=== PATIENT | male | born 1965 | race Caucasian/White ===

== ENCOUNTER 2017-08-29 15:39 | Inpatient (IN) | payer OTHER ==
[~2017-08-29] VITALS: Ht 182.9 cm; Wt 95.7 kg
[~2017-08-29 15:39] MED LIST: FENOFIBRIC ACI135 MG PO; LIORESAL PO; MORPHINE SULFAT30 M2 PO; OMEGA-3-ACID ETH1 GM; OXYCODONE HYDRO10 M1 PO; PANTOPRAZOLE SO40 MG PO; PRAVASTATIN SOD10 MG PO; SUMATRIPTAN SUC50 MG PO; TAMSULOSIN HYD0.4 MG PO; TOPIRAMATE25 MG PO; ZOLPIDEM TARTRAT5 MG PO
[2017-08-29 16:03] LABS: ABSOLUTE BASOPHIL COUNT 0.1 /CUMM (0.0-0.2); ABSOLUTE EOSINOPHIL COUNT 0.3 /CUMM (0.0-0.7); ABSOLUTE GRANULOCYTE CT 13.8 /CUMM (1.4-6.5); ABSOLUTE LYMPH COUNT 3.2 /CUMM (1.2-3.4); ABSOLUTE MONOCYTE COUNT 0.9 /CUMM (0.10-0.60); BASOPHIL % 0.7 % (0.0-2.0); EOSINOPHIL % 1.5 % (0-5); HEMATOCRIT 44.8 % (42-52); MEAN CORPUSCULAR VOLUME 81.7 FL (80.0-94.0); MEAN PLATELET VOLUME 8.1 FL (7.4-10.4); PLATELET COUNT 285 /CUMM (130-400); RBC DISTRIBUTION WIDTH 14.1 % (11.5-14.5); RED BLOOD CELL CT 5.49 /CUMM (4.70-6.10); WHITE BLOOD CELL COUNT 18.4 /CUMM (4.8-10.8)
[2017-08-29 16:22] LABS: GRANULOCYTE % 75.1 % (42.2-75.2)
--- NOTE | 2017-08-29 17:11 | ED GI/GU/ABDOMINAL COMPLAINT ---
History of Present Illness General Chief Complaint: General Adult Stated Complaint: "MY HAS HEART PAIN" PER Source: patient, family Exam Limitations: no limitations Vital Signs & Intake/Output Vital Signs & Intake/Output Vital Signs Date Time Temp Pulse Resp B/P B/P Pulse O2 O2 Flow FiO2 Mean Ox Delivery Rate 08/29 1921 98.9 89 18 127/84 98 Room Air 08/29 1734 Room Air 08/29 1544 96.4 100 18 144/100 99 Room Air Allergies Coded Allergies: penicillin V (UNKNOWN 08/29/17) Reconcile Medications Baclofen (Lioresal) 5 MG TAB 10 MG PO TID MUSCLE RELAXER (Reported) FENOFIBRIC ACID (CHOLINE) (Fenofibric Acid) 135 MG CAPSULE.DR 135 MG PO DAILY CHOLESTEROL (Reported) OMEGA-3 ACID ETHYL ESTERS ([place]-3 Acid Ethyl Esters) 1 GRAM CAPSULE 1 GM DAILY TRIGLYCERIDES (Reported) OXYCODONE HCL (Oxycodone Hydrochloride) 10 MG TABLET 1 TAB PO 4 TIMES/DAY PAIN (Reported) Pantoprazole Sodium 40 MG TABLET.DR 40 MG PO PRN GERD (Reported) Pravastatin (Pravastatin Sodium) 10 MG TAB 40 MG PO DAILY CHOLESTEROL ( Reported) Sumatriptan Succinate 50 MG TAB 50 MG PO PRN MIGRAINES (Reported) TAMSULOSIN HCL (Tamsulosin Hydrochloride) 0.4 MG CAP.ER.24H 1 CAP PO DAILY PROSTATE (Reported) Topiramate 25 MG TABLET 25 MG PO PRN MIGRAINES (Reported) Zolpidem Tartrate 5 MG TAB 10 MG PO QHS SLEEP (Reported) Triage Note: PT STATES HE IS HAVING CHEST PAIN. PT REPORTS BEING ON OXYCODONE FOR THE PAST 10 YEARS AND PT STATES HE WAS CHANGED TO VICODEN. PT C/O CHEST PAIN AND STOMACH PAIN. "I FEEL LIKE CRAP". Triage Nurses Notes Reviewed? yes Onset: Gradual Duration: day(s): (10), constant, continues in ED, waxing and waning Quality/Severity: sharpness, severe Location: right lower quadrant, right upper quadrant Radiation: chest Activities at Onset: none HPI: Patient presents for evaluation of severe stomach irritation with nausea that began with a conversion of his pain medication from Percocet to Vicodin. This occurred about 10 days ago. 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 That was then converted over to Vicodin. Patient feels that it is the Vicodin that causing him the abdominal discomfort/irritation. He denies any associated diarrhea. Past History Travel History Traveled to [place] past 21 day No Medical History Any Pertinent Medical History? see below for history Tetanus Vaccine: 07/02/14 Surgical History Surgical History: non-contributory Psychosocial History What is your primary language Belarusian Tobacco Use: Current Daily Use Daily Tobacco Use Amount/Type: => 5 Cigarettes daily ETOH Use: denies use Illicit Drug Use: denies illicit drug use Family History Hx Contributory? No Review of Systems Review of Systems Constitutional: Reports: no symptoms. EENTM: Reports: no symptoms. Respiratory: Reports: no symptoms. Cardiovascular: Reports: no symptoms. GI: Reports: no symptoms, see HPI. Genitourinary: Reports: no symptoms. Musculoskeletal: Reports: no symptoms. Skin: Reports: no symptoms. Neurological/Psychological: Reports: no symptoms. Hematologic/Endocrine: Reports: no symptoms. Immunologic/Allergic: Reports: no symptoms. All Other Systems: Reviewed and Negative Physical Exam Physical Exam Gastrointestinal: SEE BELOW Comments: Gen.: Well-nourished, well-developed, no acute respiratory distress. Moderate distress secondary to upper abdominal pain. Head: Normocephalic, atraumatic. Eyes: Normal inspection bilaterally Ears: Normal inspection bilaterally Nose: Normal inspection Throat/mouth : Moist mucosa Neck: Supple, full range of motion, no goiter Heart: Regular rate and rhythm, no murmurs rubs or gallops Lungs: Clear to auscultation bilaterally with normal air entry Chest: Nontender Back: Normal range of motion Abdomen: Soft, epigastric abdominal tenderness with brief voluntary guarding but no rebound, nondistended, normal bowel sounds Extremities: Normal range of motion grossly, equal radial pulses, no cyanosis clubbing or edema Neurologic: Cranial nerves grossly intact, speech is clear Skin: warm and dry Psychiatric: Calm, cooperative, no apparent delusions or hallucinations Core Measures ACS in differential dx? No Sepsis Present: No Sepsis Focused Exam Completed? No Progress Differential Diagnosis: GASTRITIS, PEPTIC ULCER DISEASE, PANCREATITIS, BILIARY COLIC, HEPATITIS, DIVERTICULITIS, MEDICATION REACTION Plan of Care: Orders Procedure Date/time Status LACTIC ACID 08/29 1845 Complete Add-on Test (ER Only) 08/29 1836 Active LIPASE 08/29 1555 Complete TROPONIN LEVEL 08/29 1545 Complete LACTIC ACID 08/29 1545 Complete COMPREHENSIVE METABOLIC PANEL 08/29 1545 Complete CBC WITHOUT DIFFERENTIAL 08/29 1545 Complete EKG 08/29 1540 Active Laboratory Tests 08/29/17 1908: Lactic Acid 3.3 H 08/29/17 1555: Anion Gap 20 H, Estimated GFR 54 L, BUN/Creatinine Ratio 24.3, Glucose 307 H, Lactic Acid 3.9 H, Calcium 10.1, Total Bilirubin 0.7, AST 59, ALT 58, Alkaline Phosphatase 108, Troponin I < 0.01, Total Protein 8.2, Albumin 5.3 H, Globulin 2.9, Albumin/Globulin Ratio 1.8, Lipase 1347 H, CBC w Diff NO MAN DIFF REQ, RBC 5.49, MCV 81.7, MCH 27.0, MCHC 33.0, RDW 14.1, MPV 8.1, Gran % 75.1, Lymphocytes % 17.7 L, Monocytes % 5.0, Eosinophils % 1.5, Basophils % 0.7, Absolute Granulocytes 13.8 H, Absolute Lymphocytes 3.2, Absolute Monocytes 0.9 H, Absolute Eosinophils 0.3, Absolute Basophils 0.1 Diagnostic Imaging: Discussed w/RAD: CT Scan. Radiology Impression: PATIENT: DIEUDONNE CALVIN PRESENT AGE: 52 PATIENT ACCOUNT NO: [id number] : 67 LOCATION: [facility] ORDERING PHYSICIAN: Logan Gavin MD SERVICE DATE: 08/29/17 EXAM TYPE: CAT - CT ABD & PELVIS W/O IV CONTRAS EXAMINATION: CT ABDOMEN AND PELVIS WITHOUT CONTRAST CLINICAL INFORMATION: Upper abdominal pain. COMPARISON: 02/22/2013. TECHNIQUE: Contiguous axial thin section helical images of the abdomen and pelvis were performed following the administration of oral, but not IV, contrast. The data set was reformatted in the coronal and sagittal planes and reviewed on an independent workstation. DLP: 391 mGy-cm. FINDINGS: There is mild bibasilar atelectasis. The visualized lung bases are otherwise clear. The visualized portions of the heart are unremarkable. The liver is of slight increased size and diffuse decreased attenuation without focal lesions nor intrahepatic biliary ductal dilation. A normal gallbladder is identified. There is no wall thickening or discernible pericholecystic fluid. The spleen and adrenal glands are unremarkable. There is fullness to the pancreatic head with surrounding fat stranding. The pancreatic body and tail are unremarkable. Both kidneys are of normal size and attenuation without hydronephrosis or nephrolithiasis. There is no abdominal free fluid. There is neither mesenteric nor retroperitoneal lymphadenopathy. There is sigmoid diverticulosis without evidence of diverticulitis; otherwise, unremarkable opacified loops of small and large bowel are identified. There is no pelvic free fluid. The urinary bladder is unremarkable. There is neither pelvic nor inguinal lymphadenopathy. Bone windows: Neither sclerotic nor lytic bone lesions are identified. IMPRESSION: Enlargement to the pancreatic head with adjacent fat stranding suggestive of pancreatitis. No drainable fluid collections identified. Evaluation is slightly limited secondary to the lack of IV contrast. Hepatic steatosis. Sigmoid diverticulosis without evidence of diverticulitis. DICTATED BY: Gary Carlin MD DATE/TIME DICTATED:08/29/171744 CLIMATE CHANGE RISK ASSESSOR:LELA DATE/TIME TRANSCRIBED:08/29/171744 CONFIDENTIAL, DO NOT COPY WITHOUT APPROPRIATE AUTHORIZATION. <Electronically signed in Other Vendor System> SIGNED BY: Gary Carlin MD 08/29/17 6570 Initial ED EKG: NSR, rate (97) Prior EKG: unchanged Comments: 08/29/2017 6:41:16 PM I have updated call and his family on test results. Fluids and pain medication ordered. 08/29/2017 8:13:10 PM patient's case discussed with Dr. Sanders. Departure Departure Disposition: STILL A PATIENT Condition: Stable Clinical Impression Primary Impression: Pancreatitis Qualifiers: Chronicity: acute Pancreatitis type: unspecified pancreatitis type Acute pancreatitis complication: unspecified Qualified Code: K85.90 - Acute pancreatitis without necrosis or infection, unspecified Referrals: Sanjuana Argueta APRN (PCP/Family) Departure Forms: Customer Survey General Discharge Information Admission Note Spoke With: Fidencio Sadners MD Documentation of Exam: Documentation of any treatments & extenuating circumstances including Concerns Regarding Discharge (functional status, medication knowledge or non-compliance, living conditions, etc.) that warrant an admission rather than observation: Patient has acute pancreatitis of unclear etiology. He is suffering severe epigastric abdominal pain. He is requiring IV narcotic pain relievers and is therefore poor candidate for outpatient management. I do not feel his pain would be adequately controlled and it would therefore be very difficult for him to comply with outpatient treatment plan. He could potentially return in worse clinical condition including worsening pain, third spacing of fluids and hypotension. Given the unclear nature of the underlying cause is also impossible to predict the patient's clinical course over the next few days. Given this I feel he requires hospitalization for pain management. He should be kept on a clear liquid diet and his pancreatic enzymes monitored for improvement. The underlying cause of his pancreatitis should be investigated ( secondary to diabetes, medications biliary disease or cancer). GI consultation should also be considered. I Feel he WILL require a multiple day hospitalization. Critical Care Note Critical Care Note Critical Care Time: 30-74 min
--- NOTE | 2017-08-29 17:53 | CT SCAN REPORT ---
EXAMINATION: CT ABDOMEN AND PELVIS WITHOUT CONTRAST CLINICAL INFORMATION: Upper abdominal pain. COMPARISON: 02/22/2013. TECHNIQUE: Contiguous axial thin section helical images of the abdomen and pelvis were performed following the administration of oral, but not IV, contrast. The data set was reformatted in the coronal and sagittal planes and reviewed on an independent workstation. DLP: 391 mGy-cm. FINDINGS: There is mild bibasilar atelectasis. The visualized lung bases are otherwise clear. The visualized portions of the heart are unremarkable. The liver is of slight increased size and diffuse decreased attenuation without focal lesions nor intrahepatic biliary ductal dilation. A normal gallbladder is identified. There is no wall thickening or discernible pericholecystic fluid. The spleen and adrenal glands are unremarkable. There is fullness to the pancreatic head with surrounding fat stranding. The pancreatic body and tail are unremarkable. Both kidneys are of normal size and attenuation without hydronephrosis or nephrolithiasis. There is no abdominal free fluid. There is neither mesenteric nor retroperitoneal lymphadenopathy. There is sigmoid diverticulosis without evidence of diverticulitis; otherwise, unremarkable opacified loops of small and large bowel are identified. There is no pelvic free fluid. The urinary bladder is unremarkable. There is neither pelvic nor inguinal lymphadenopathy. Bone windows: Neither sclerotic nor lytic bone lesions are identified. IMPRESSION: Enlargement to the pancreatic head with adjacent fat stranding suggestive of pancreatitis. No drainable fluid collections identified. Evaluation is slightly limited secondary to the lack of IV contrast. Hepatic steatosis. Sigmoid diverticulosis without evidence of diverticulitis.
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
[2017-08-29 22:45] VITALS: BP 126/80
[2017-08-29 22:46] VITALS: BP 126/80
[2017-08-29 23:16] LABS: ABSOLUTE BASOPHIL COUNT 0 /CUMM (0.0-0.2); ABSOLUTE EOSINOPHIL COUNT 0.2 /CUMM (0.0-0.7); ABSOLUTE GRANULOCYTE CT 9.1 /CUMM (1.4-6.5); ABSOLUTE LYMPH COUNT 2.4 /CUMM (1.2-3.4); ABSOLUTE MONOCYTE COUNT 0.7 /CUMM (0.10-0.60); BASOPHIL % 0.2 % (0.0-2.0); EOSINOPHIL % 1.9 % (0-5); GRANULOCYTE % 73.4 % (42.2-75.2); HEMATOCRIT 40.1 % (42-52); MEAN CORPUSCULAR HGB 27.4 PG (27.0-31.0); MEAN CORPUSCULAR VOLUME 80.4 FL (80.0-94.0); PLATELET COUNT 248 /CUMM (130-400); RBC DISTRIBUTION WIDTH 14.1 % (11.5-14.5); RED BLOOD CELL CT 4.99 /CUMM (4.70-6.10); WHITE BLOOD CELL COUNT 12.4 /CUMM (4.8-10.8)
--- NOTE | 2017-08-29 23:38 | RADIOLOGY REPORT ---
EXAMINATION: XR PORTABLE CHEST CLINICAL INFORMATION: Chest pain. COMPARISON: Chest x-ray 05/27/2015 TECHNIQUE: Portable frontal view of the chest was obtained. FINDINGS: No acute abnormality. The lungs are clear. There is no pulmonary vascular congestion. No pleural effusion or pneumothorax. The heart size is normal. The cardiac and mediastinal contours are normal. No acute osseous abnormality. Orthopedic hardware again seen at the lower cervical spine partially imaged. IMPRESSION: Unremarkable examination.
[2017-08-30] MEDS ORDERED: LYRICA100 M1 PO (01:20)
[2017-08-30] MEDS ORDERED: CRESTOR20 M2 PO (01:22)
[2017-08-30] MEDS ORDERED: METFORMIN HCL1000 M1 PO (01:22)
--- NOTE | 2017-08-30 02:11 | Event Note ---
Event Note Event Note: S: Rapid response was called once patient arrived to the floor for chest pain B: Patient was admitted for acute pancreatitis. He reported chronic chest pain that radiated to right side, doesn't relate to activity, denied any shortness of breath or palpitation, on admission EKG and troponins are negative for CAD A: Patient reported pain pressure-like lower chest radiated to the right arm, not associated with palpitation or shortness of breath. He is alert oriented 3 and reporting severe pain in the epigastric area and lower chest. Vitals blood pressure 126/80, pulse 86 regular, respiratory rate 20 saturating 97% room air, blood sugar 197 Exam cardiac S1, S2 no murmurs Chest clear Abdomen generalized tenderness not changed from admission R: Will obtain EKG, troponin, CBC, BMP, chest x-ray, lactic acid Patient was given Dilaudid IV for pain, full dose of aspirin Attending was informed We'll continue to follow
--- NOTE | 2017-08-30 03:11 | Admission Certification ---
Admission Certification Certification Statement - As attending physician, I certify that at the time of - admission, based on clinical presentation, severity of - symptoms, need for further diagnostic testing and - therapeutic interventions, and risk of adverse outcomes - without in-hospital treatment, in my clinical assessment, - this patient requires an acute hospital stay for a minimum - of two nights or longer. I have also considered psychsocial - factors such as support system, advanced age, financial - issues, cognitive issues, and failed out-patient treatments, - past re-admission history, safety of patient, and lack of - compliance as applicable. Specific rationale supporting this admission is: Acute pancreatitis
[2017-08-30 06:54] VITALS: BP 150/100
--- NOTE | 2017-08-30 07:10 | PN- Housestaff ---
Johan QUEZADA,[facility] 08/30/17 0710: Subjective Follow-up For: pancreatitis Subjective: No acute events overnight. Pt requested clear liquids but still in alot of pain. Review of Systems Constitutional: Reports: see HPI. Cardiovascular: Reports: no symptoms. Respiratory: Reports: no symptoms. Gastrointestinal: Reports: abdominal pain. Genitourinary: Reports: no symptoms. Musculoskeletal: Reports: no symptoms. Objective Last 24 Hrs of Vital Signs/I&O Vital Signs Date Time Temp Pulse Resp B/P B/P Pulse O2 O2 Flow FiO2 Mean Ox Delivery Rate 08/30 2242 97.8 77 18 158/90 98 Room Air 08/30 1443 97.8 82 20 142/94 96 08/30 0654 98.8 81 20 150/100 96 Room Air Intake & Output 08/30 1600 08/30 0800 08/30 0000 Intake Total 1300 1220 Output Total Balance 1300 1220 Intake, IV 1250 1100 Intake, Oral 50 120 Number 0 0 Bowel Movements Patient 211 lb Weight Physical Exam General Appearance: Alert, Oriented X3, Cooperative, Moderate Distress Cardiovascular: Regular Rate, Normal S1, Normal S2 Lungs: Clear to Auscultation, Normal Air Movement Abdomen: diffuse abd pain especially epigastric Vascular: 2+ radial pulses Current Medications: Current Medications Sig/Jazmin Start time Last Medication Dose Route Stop Time Status Admin Acetaminophen 650 MG Q6P PRN 08/29 2345 AC PO Al Hydroxide/Mg 30 ML .STK-MED ONE 08/30 1029 DC Hydroxide PO 08/30 1030 Al Hydroxide/Mg 30 ML ONCE ONE 08/30 0945 DC 08/30 Hydroxide PO 08/30 0946 1045 Atorvastatin Calcium 80 MG 1700 08/30 1700 AC 08/30 PO 1642 Fenofibrate 145 MG DAILY 08/30 1000 AC 08/30 PO 0845 Heparin Sodium 5,000 UNIT Q8 08/30 0600 AC 08/30 (Porcine) SC 2204 Hydromorphone HCl 1 MG Q4-PRN PRN 08/30 0245 AC 08/30 IV 1407 Hydromorphone HCl 1 MG Q6P PRN 08/29 2345 DC 08/30 IV 0200 Insulin Aspart 0 Q4 08/30 1000 AC 08/30 SC 2205 Insulin Aspart 0 TIDAC 08/30 0800 DC SC Insulin Detemir 10 UNITS DAILY 08/30 1000 AC 08/30 SC 1024 Insulin Human Regular 0 Q6 08/30 0829 DC 08/30 SC 0844 Lactated Ringer's 1,000 ML .Q4H 08/30 1645 AC 08/30 IV 1832 Lactated Ringer's 1,000 ML .Q4H 08/30 0215 DC 08/30 IV 08/30 1630 1230 Lactated Ringer's 1,000 ML ONCE ONE 08/29 2345 DC IV 08/30 0624 Magnesium Sulfate 1 GM ONCE ONE 08/29 2345 DC 08/30 Dextrose/Water 100 ML IV 08/30 0344 0400 Melatonin 5 MG AT BEDTIME 08/30 2300 AC PO Nicotine 14 MG Q24 08/30 1000 AC 08/30 TOP 0847 Ondansetron HCl 4 MG Q6P PRN 08/29 2345 AC 08/30 IV 1647 Oxycodone HCl 5 MG Q6P PRN 08/29 2345 AC 08/30 PO 2204 Pantoprazole Sodium 40 MG DAILY 08/30 1000 AC 08/30 IV 0844 Patient Medication 1 ED ONE ONE 08/30 1330 DC 08/30 Teaching ED 08/30 1331 1407 Pregabalin 200 MG BID 08/30 1000 AC 08/30 PO 2203 Senna/Docusate Sodium 1 TAB AT BEDTIME 08/30 2200 AC 08/30 PO 2203 Sodium Chloride 1,000 ML BOLUS ONE 08/29 2345 DC 08/30 IV 08/30 0144 0145 Topiramate 25 MG DAILY 08/30 1000 AC 08/30 PO 0845 Topiramate 25 MG .[PRN] 08/30 0115 DC PO Zolpidem Tartrate 10 MG AT BEDTIME 08/30 2200 AC PO Last 24 Hrs of Lab/Zafar Results Last 24 Hrs of Labs/Mics: Laboratory Tests 08/30/17 1935: Lactic Acid 2.2 H 08/30/17 1641: Lactic Acid 2.3 H 08/30/17 1639: Lactic Acid Cancelled 08/30/17 1120: Lactic Acid 2.8 H 08/30/17 0729: Anion Gap 16, Estimated GFR > 60, BUN/Creatinine Ratio 20.0, CBC w Diff NO MAN DIFF REQ, RBC 4.71, MCV 81.0, MCH 27.8, MCHC 34.3, RDW 14.3, MPV 8.1, Gran % 72.6, Lymphocytes % 17.9 L, Monocytes % 6.1, Eosinophils % 3.1, Basophils % 0.3 , Absolute Granulocytes 7.7 H, Absolute Lymphocytes 1.9, Absolute Monocytes 0.6 , Absolute Eosinophils 0.3, Absolute Basophils 0 08/30/17 0720: Troponin I < 0.01 08/30/17 0720: Magnesium 1.5 L 08/30/17 0720: Lactic Acid 2.2 H, Total Bilirubin 0.8, Direct Bilirubin 0.3, AST 37, ALT 51, Alkaline Phosphatase 87, Total Protein 6.8, Albumin 4.4, Triglycerides 756 H, Cholesterol 172, LDL Cholesterol Direct 46.53, LDL Cholesterol, Calc ND, HDL Cholesterol 37 L, Cholesterol/HDL Ratio 5 H 08/30/17 0135: Lactic Acid 2.7 H Assessment/Plan Assessment: A: 52 yaers old male with PMH of DM,HTN,HLD,MIGRAINE,spinal injury S/P surgery on chronic pain meds C/O of Abd pain and nausea which all started 2 weeks ago when his doctor changed his pain meds from Oxycodone which he was tolerating fine to Vicodine, pt felt uncomfortable taking it and started having nausea and diarrhea and worsening abd pain. Patient has history of cholecystectomy in 2008 after which he continue with toexperience intermittent abdominal pain which might be due to undetected stones in the biliary tract patient denies any changes to his medications recently except for he was started onTrajenta yesterday he only got 1 dose. VS on admission: Temp 98.9, pulse 89, RR: 18, BP 127/84, PO2 98 on RA LAbs on admission: CBC 18.4, Hgb 14.8, Plat 285, granulocyte 13.8, NA 134, K 5, Chlorise 96, carbon dioxide 18, Anion gap 20, BU&N 34, Cr 1.4, Glucose 307, Lactic acid 3.9 trended to 3.3, Alt 58, AST 59, Lipase 1347, TG>900 #Acute pancreatitis: BISAP score 1 Most likely due to hypertrigylecerdimea (982) RUQ U/S: hepatic steatosis. No other gross abnormality CT abdomen: Enlargement to the pancreatic head with adjacent fat stranding suggestive of pancreatitis. No drainable fluid collections identified. Evaluation is slightly limited secondary to the lack of IV contrast. Hepatic steatosis. Sigmoid diverticulosis without evidence of diverticulitis. CRP 1.6 -continue IV hydration with lactated Ringer -Pain control -Will check CRP for 3 days as a prognostic indicator -f/u GI consult for enlargement of pancreatic head -f/u repeat cbc, bep, lft, lipase, lipid panel, crp for tomorrow -advanced diet as tolerated #Lactic acidosis Most likely due to dehydration LA 3.9 -> 2.2 -IV hydration with LR @ 250 -Trend lactic acid #Atypical chest pain: Patient reports having exertional chest pain radiating to the right arm serial EKGs and troponins negative Chest x-ray was normal -Most likely referred from abdominal pain -Control with pain meds #Diabetes mellitus type 2 -follow endocrinology recs for insulin #leukocytosis 18.4 -> 10.6 -possibly reactive as pt afebrile #hypomag Mg 1.3 -> 1.5 -replete as needed Nothing by mouth (pt still in pain) Full code DVT prophylaxis with subcutaneous heparin Problem List: 1. Pancreatitis 2. Lactic acidosis 3. Leukocytosis 4. Hypomagnesemia Pain Ratin Pain Location: abd Pain Goal: Pain 4 or less Pain Plan: pain pathway Tomorrow's Labs & Rationales: cbc bep lft lipase lipid panel mg crp Elvin Kim 08/30/17 1212: Attending MD Review Statement Attending Statement Attending MD Statement: examined this patient, discuss w/resident/PA/ETCHER MACHINE, agreed w/resident/PA/ETCHER MACHINE, discussed with family, reviewed EMR data (avail), discussed with nursing, discussed with case mgmt, reviewed images, amended to note Attending Assessment/Plan: 52 o/m admitted for acute pancreatitis. CT abd/pelvis suggestive of enlarged pancreatic head. NPO, IVF aggresive hydration, GI consult, pain control. Continue with oral meds. gi/dvt prophyalxis full code.
[2017-08-30 08:20] LABS: ABSOLUTE BASOPHIL COUNT 0 /CUMM (0.0-0.2); ABSOLUTE EOSINOPHIL COUNT 0.3 /CUMM (0.0-0.7); ABSOLUTE GRANULOCYTE CT 7.7 /CUMM (1.4-6.5); ABSOLUTE LYMPH COUNT 1.9 /CUMM (1.2-3.4); ABSOLUTE MONOCYTE COUNT 0.6 /CUMM (0.10-0.60); BASOPHIL % 0.3 % (0.0-2.0); EOSINOPHIL % 3.1 % (0-5); GRANULOCYTE % 72.6 % (42.2-75.2); HEMATOCRIT 38.2 % (42-52); MEAN CORPUSCULAR HGB 27.8 PG (27.0-31.0); MEAN CORPUSCULAR HGB CONC 34.3 G/DL (33.0-37.0); MEAN PLATELET VOLUME 8.1 FL (7.4-10.4); PLATELET COUNT 209 /CUMM (130-400); RBC DISTRIBUTION WIDTH 14.3 % (11.5-14.5); RED BLOOD CELL CT 4.71 /CUMM (4.70-6.10); WHITE BLOOD CELL COUNT 10.6 /CUMM (4.8-10.8)
--- NOTE | 2017-08-30 10:40 | ULTRASOUND REPORT ---
EXAMINATION: US ABDOMEN LIMITED CLINICAL INFORMATION: Generalized right upper quadrant pain. History of cholecystectomy. Pancreatitis.. COMPARISON: CT abdomen pelvis 08/29/2017 and abdominal ultrasound 07/07/2017 TECHNIQUE: Real-time imaging of the right upper quadrant abdominal viscera. Examination limited secondary to body habitus and overlying bowel gas. FINDINGS: PANCREAS: The pancreas was poorly visualized secondary to overlying bowel gas. LIVER: The liver is enlarged and demonstrates diffusely increased echogenicity suggesting hepatic steatosis. No intrahepatic biliary duct dilatation. GALLBLADDER: Surgically absent COMMON BILE DUCT: Normal in caliber measuring 0.4 cm in diameter. RIGHT KIDNEY: Poorly visualized. No gross renal calculi or hydronephrosis. The kidney measures 11.8 cm in maximum dimension. FREE FLUID: None. IMPRESSION: Limited examination secondary to body habitus and overlying bowel gas. There is ultrasound evidence of hepatic steatosis. No other gross abnormality identified on today's ultrasound imaging of the right upper quadrant.
--- NOTE | 2017-08-30 14:01 | Cons- Endocrinology ---
General Information and HPI Consulting Request Date of Consult: 08/30/17 Requested By: medical team Reason for Consult: management of uncontrolled diabetes type 2 and hypertriglycedemia Source of Information: patient, old records Exam Limitations: no limitations History of Present Illness: 52 years old male with PMH significant for DM type 2 on meformin,HTN,HLD, MIGRAINE,spinal injury S/P surgery on chronic pain meds presented with abdominal pain and nausea started 2 weeks ago after his pain medication was adjusted. In ER, blood work showed lipase 1347, amylase 43, TRIG 982, LDL 165, elevated lactic acid of 3.9 along with HbA1c of 10.2%. He denied any ETOH uses. He has been kept NPO and has bee on LR at 150 ml/hour. His FSGs were 197 and 242. In addition, he was put on Atorvastatin 80 mg daily and Fenofibrate 145 mg daily. 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 (Reported) Metformin HCl 1,000 MG TABLET 1 TAB PO BID DM (Reported) OMEGA-3 ACID ETHYL ESTERS ([place]-3 Acid Ethyl Esters) 1 GRAM CAPSULE 1 GM DAILY TRIGLYCERIDES (Reported) Pantoprazole Sodium 40 MG TABLET.DR 40 MG PO PRN GERD (Reported) Pregabalin (Lyrica) 100 MG CAPSULE 200 MG PO BID NEUROPATHY (Reported) Rosuvastatin Calcium (Crestor) 20 MG TABLET 1 TAB PO DAILY HIGH CHOLESTROL ( Reported) Sumatriptan Succinate 50 MG TAB 50 MG PO PRN MIGRAINES (Reported) Topiramate 25 MG TABLET 25 MG PO PRN MIGRAINES (Reported) Zolpidem Tartrate 5 MG TAB 10 MG PO QHS SLEEP (Reported) Review of Systems Review of Systems Constitutional: Reports: see HPI. Cardiovascular: Denies: chest pain. Respiratory: Denies: cough, short of breath. GI: Reports: abdominal pain, nausea. Musculoskeletal: Reports: back pain (chronic). Hematologic/Endocrine: Denies: polyuria, polydipsia. 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 Home Services at Home: None Smoking Status: Current Everyday Smoker ETOH Use: denies use Illicit Drug Use: denies illicit drug use Exam & Diagnostic Data Last 24 Hrs of Vital Signs/I&O Vital Signs Date Time Temp Pulse Resp B/P B/P Pulse O2 O2 Flow FiO2 Mean Ox Delivery Rate 08/30 0654 98.8 81 20 150/100 96 Room Air 08/29 2246 98.1 86 20 126/80 97 Room Air 08/29 2245 98.1 86 20 126/80 97 Room Air 08/29 2158 99.1 98 18 136/78 98 Room Air 08/29 1921 98.9 89 18 127/84 98 Room Air 08/29 1734 Room Air 08/29 1544 96.4 100 18 144/100 99 Room Air Intake & Output 08/30 1600 08/30 0800 08/30 0000 Intake Total 1220 Output Total Balance 1220 Intake, IV 1100 Intake, Oral 120 Number 0 Bowel Movements Patient 211 lb Weight Physical Exam General Appearance: no apparent distress Neck: normal inspection Respiratory: lungs clear Cardiovascular: regular rate/rhythm Gastrointestinal: distention, tenderness Extremities: no edema Labs/Zafar Results: Laboratory Tests 08/30 08/30 08/30 08/30 1120 0729 0720 0720 Chemistry Sodium (137 - 145 mmol/L) 135 L Potassium (3.5 - 5.1 mmol/L) 4.8 Chloride (98 - 107 mmol/L) 100 Carbon Dioxide (22 - 30 mmol/L) 19 L Anion Gap (5 - 16) 16 BUN (9 - 20 mg/dL) 18 Creatinine (0.7 - 1.2 mg/dL) 0.9 Estimated GFR (>60 ml/min) > 60 BUN/Creatinine Ratio (7 - 25 %) 20.0 Lactic Acid (0.7 - 2.1 mmol/L) 2.8 H Magnesium (1.6 - 2.3 mg/dL) 1.5 L Troponin I (<0.11 ng/ml) < 0.01 Hematology CBC w Diff NO MAN DIFF REQ WBC (4.8 - 10.8 /CUMM) 10.6 RBC (4.70 - 6.10 /CUMM) 4.71 Hgb (14.0 - 18.0 G/DL) 13.1 L Hct (42 - 52 %) 38.2 L MCV (80.0 - 94.0 FL) 81.0 MCH (27.0 - 31.0 PG) 27.8 MCHC (33.0 - 37.0 G/DL) 34.3 RDW (11.5 - 14.5 %) 14.3 Plt Count (130 - 400 /CUMM) 209 MPV (7.4 - 10.4 FL) 8.1 Gran % (42.2 - 75.2 %) 72.6 Lymphocytes % (20.5 - 51.1 %) 17.9 L Monocytes % (1.7 - 9.3 %) 6.1 Eosinophils % (0 - 5 %) 3.1 Basophils % (0.0 - 2.0 %) 0.3 Absolute Granulocytes (1.4 - 6.5 /CUMM) 7.7 H Absolute Lymphocytes (1.2 - 3.4 /CUMM) 1.9 Absolute Monocytes (0.10 - 0.60 /CUMM) 0.6 Absolute Eosinophils (0.0 - 0.7 /CUMM) 0.3 Absolute Basophils (0.0 - 0.2 /CUMM) 0 08/30 08/30 08/29 8213 8680 2378 Chemistry Hemoglobin A1c (4.2 - 5.8 %) 10.2 H Lactic Acid (0.7 - 2.1 mmol/L) 2.2 H 2.7 H 3.3 H Magnesium (1.6 - 2.3 mg/dL) 1.3 L Total Bilirubin (0.2 - 1.3 mg/dL) 0.8 Direct Bilirubin (< 0.4 mg/dL) 0.3 AST (17 - 59 U/L) 37 ALT (21 - 72 U/L) 51 Alkaline Phosphatase (< 127 U/L) 87 Troponin I (<0.11 ng/ml) < 0.01 Total Protein (6.3 - 8.2 g/dL) 6.8 Albumin (3.5 - 5.0 g/dL) 4.4 Triglycerides (<150 mg/dL) 756 H Cholesterol (< 200 MG/DL) 172 LDL Cholesterol Direct (<100 mg/dL) 46.53 LDL Cholesterol, Calc (65 - 129 mg/dL) ND HDL Cholesterol (40 - 60 mg/dL) 37 L Cholesterol/HDL Ratio (0.00 - 4.88 %) 5 H 08/29 08/29 0285 1908 Chemistry Sodium (137 - 145 mmol/L) 135 L Potassium (3.5 - 5.1 mmol/L) 5.1 Chloride (98 - 107 mmol/L) 98 Carbon Dioxide (22 - 30 mmol/L) 21 L Anion Gap (5 - 16) 16 BUN (9 - 20 mg/dL) 25 H Creatinine (0.7 - 1.2 mg/dL) 1.1 Estimated GFR (>60 ml/min) > 60 BUN/Creatinine Ratio (7 - 25 %) 22.7 Lactic Acid (0.7 - 2.1 mmol/L) 3.3 H Hematology CBC w Diff NO MAN DIFF REQ WBC (4.8 - 10.8 /CUMM) 12.4 H RBC (4.70 - 6.10 /CUMM) 4.99 Hgb (14.0 - 18.0 G/DL) 13.7 L Hct (42 - 52 %) 40.1 L MCV (80.0 - 94.0 FL) 80.4 MCH (27.0 - 31.0 PG) 27.4 MCHC (33.0 - 37.0 G/DL) 34.0 RDW (11.5 - 14.5 %) 14.1 Plt Count (130 - 400 /CUMM) 248 MPV (7.4 - 10.4 FL) 8.0 Gran % (42.2 - 75.2 %) 73.4 Lymphocytes % (20.5 - 51.1 %) 19.1 L Monocytes % (1.7 - 9.3 %) 5.4 Eosinophils % (0 - 5 %) 1.9 Basophils % (0.0 - 2.0 %) 0.2 Absolute Granulocytes (1.4 - 6.5 /CUMM) 9.1 H Absolute Lymphocytes (1.2 - 3.4 /CUMM) 2.4 Absolute Monocytes (0.10 - 0.60 /CUMM) 0.7 H Absolute Eosinophils (0.0 - 0.7 /CUMM) 0.2 Absolute Basophils (0.0 - 0.2 /CUMM) 0 08/29 1555 Chemistry Sodium (137 - 145 mmol/L) 134 L Potassium (3.5 - 5.1 mmol/L) 5.0 Chloride (98 - 107 mmol/L) 96 L Carbon Dioxide (22 - 30 mmol/L) 18 L Anion Gap (5 - 16) 20 H BUN (9 - 20 mg/dL) 34 H Creatinine (0.7 - 1.2 mg/dL) 1.4 H Estimated GFR (>60 ml/min) 54 L BUN/Creatinine Ratio (7 - 25 %) 24.3 Glucose (65 - 99 mg/dL) 307 H Lactic Acid (0.7 - 2.1 mmol/L) 3.9 H Calcium (8.4 - 10.2 mg/dL) 10.1 Total Bilirubin (0.2 - 1.3 mg/dL) 0.7 AST (17 - 59 U/L) 59 ALT (21 - 72 U/L) 58 Alkaline Phosphatase (< 127 U/L) 108 Troponin I (<0.11 ng/ml) < 0.01 C-Reactive Prot, Quant (<1.0 mg/dL) 1.6 H Total Protein (6.3 - 8.2 g/dL) 8.2 Albumin (3.5 - 5.0 g/dL) 5.3 H Globulin (1.9 - 4.2 gm/dL) 2.9 Albumin/Globulin Ratio (1.1 - 2.2 %) 1.8 Triglycerides (<150 mg/dL) 982 H Cholesterol (< 200 MG/DL) 209 H LDL Cholesterol Direct (<100 mg/dL) 52.49 LDL Cholesterol, Calc (65 - 129 mg/dL) ND HDL Cholesterol (40 - 60 mg/dL) 46 Cholesterol/HDL Ratio (0.00 - 4.88 %) 5 H Lipase (23 - 300 U/L) 1347 H Hematology CBC w Diff NO MAN DIFF REQ WBC (4.8 - 10.8 /CUMM) 18.4 H RBC (4.70 - 6.10 /CUMM) 5.49 Hgb (14.0 - 18.0 G/DL) 14.8 Hct (42 - 52 %) 44.8 MCV (80.0 - 94.0 FL) 81.7 MCH (27.0 - 31.0 PG) 27.0 MCHC (33.0 - 37.0 G/DL) 33.0 RDW (11.5 - 14.5 %) 14.1 Plt Count (130 - 400 /CUMM) 285 MPV (7.4 - 10.4 FL) 8.1 Gran % (42.2 - 75.2 %) 75.1 Lymphocytes % (20.5 - 51.1 %) 17.7 L Monocytes % (1.7 - 9.3 %) 5.0 Eosinophils % (0 - 5 %) 1.5 Basophils % (0.0 - 2.0 %) 0.7 Absolute Granulocytes (1.4 - 6.5 /CUMM) 13.8 H Absolute Lymphocytes (1.2 - 3.4 /CUMM) 3.2 Absolute Monocytes (0.10 - 0.60 /CUMM) 0.9 H Absolute Eosinophils (0.0 - 0.7 /CUMM) 0.3 Absolute Basophils (0.0 - 0.2 /CUMM) 0.1 Toxicology Serum Alcohol (<10 MG/DL) < 10.0 Assessment/Plan Assessment/Plan 52 years old male with PMH significant for DM type 2 on meformin,HTN,HLD, MIGRAINE,spinal injury S/P surgery on chronic pain meds presented with abdominal pain and nausea started 2 weeks ago after his pain medication was adjusted. In ER, blood work showed lipase 1347, amylase 43, TRIG 982, LDL 165, elevated lactic acid of 3.9 along with HbA1c of 10.2%. He denied any ETOH uses. He has been kept NPO and has bee on LR at 150 ml/hour. His FSGs were 197 and 242. In addition, he was put on Atorvastatin 80 mg daily and Fenofibrate 145 mg daily. plan: 1. add Levemir 10 units daily; 2. agree with holding off on metformin; 3. adjust Novolog coverage verey 4 hours--detail see the inpatient DM order; 4. monitor FSGs; 5. repeat TRIG level tomorrow. will follow. Inpatient Diabetes Orders Before Each Meal: Bolus Insulin: Novolog < 80 mg/dl: no coverage 80-100 mg/dl: no coverage 101-120 mg/dl: no coverage 121-150 mg/dl: no coverage 151-200 mg/dl: no coverage 201-250 mg/dl: 3 units 251-300 mg/dl: 4 units 301-350 mg/dl: 6 units 351-400 mg/dl: 8 units > 400 mg/dl: 10 units Consult Acknowledgment - Thank you for your consult request.
[2017-08-30 14:43] VITALS: BP 142/94
--- NOTE | 2017-08-30 20:47 | Cons- Gastroenterology ---
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 elevated WBC 18.4 & glucose 301, although no LDH was sent on admission. He had 1 grave sign on admission by BiSAP criteria, namely elevated BUN 34. Admission CXR did not show any pleural effusions. Fortunately, there is no laboratory evidence of hemoconcentration, namely rise in BUN or Hgb, which would have been a poor prognostic sign. The mildly elevated CRP 1.6 on admission was noted, but this was probably obtained a little early. * His pancreatitis (clinically, radiographically- although limited utility of non- contrast IV CT, & lab-gilman with elevated lipase), most probably is due to his hyperTG, with admission *TG 982. This is superimposed on his cigarette smoking, which is yet another risk factor for pancreatitis. He denied EtOH, & levels were negative. No Utox was sent on admission- he remotely abused cocaine, which can cause ischemia to the GI organs. He is post-CCKY. Remote MRCP did not show any choledocholithisais, & his LFTs were normal, despite his fatty liver. He is on chronic rx narcotics for his neck/back pain, which can cause increased tone at the Sphincter of Oddi, but again, his LFTs were normal & there were no dilated ducts. *The +FHx pancreatic Ca (F- 65), is noted. The patient has been seen by endocrine to manage his hyperTG & DM. Within the limits of a non-IV contrast CT, there was nothing to suggest pancreatic necrosis, which would be unusual to see early on in the course, anyway. *SUGGEST- NPO. IV Lactated Ringer's at 250 cc/hr for now. If stable in a.m., can try sips of clears po. Strict I/O's. Supplemental O2 as needed. Analgesics as needed. Anti-emetics as needed. May continue IV PPI (past hx GERD), but watch low Mg on this. Replete electrolytes. Serial CBC, BUN/Cr, GFR (continue to watch for hemoconcentration) & TG. Management of DM with insulin, & of HLD with Tricor & Atorvastatin, as per endocrine. DVT prophyalxis. Mobilize patient. D/C cigarette smoking urged. Risk factor modification for fatty liver, including strict control of glucose, HTN, lipids, body weight, etc. Consideration for Vitamin E 800 IU po daily. *As the hyperTG is the probable culprit (superimposed on cigarette smoking), would defer IgG4 level (doubt autoimmune pancreatitis), and/or genetic testing (i.e- SPINK mutation, CFTR, PRSS-1, etc). *With +FHx pancreatic Ca, consideration for outpt EUS in 1-2 months, after the pancreatitis subsides (r/o IPMN, r/o PD stricture, etc.). *If the patient's diet is unable to be gradually advanced in conjunction with endocrine management of lipids & DM, please call the GI office. Otherwise, the partient was told to follow-up with Dr. Bao Schmid upon D/C. Problem List: 1. Pancreatitis 2. Abdominal pain 3. Hypertriglyceridemia 4. Nausea 5. Fatty liver 6. Family history of pancreatic cancer Copies To: Tommy QUEZADA,Fidencio; Julio QUEZADA,Elvin; Kendall ANTHONY,Sanjuana Kingsley; Amina QUEZADA,Chauncey N.; Sharmaine QUEZADA,Noah Jara; Yash QUEZADA,Raymond; Apolonia QUEZADA,Song Wick. Consult Acknowledgment - Thank you for your consult request.
[2017-08-30 22:42] VITALS: BP 158/90
[2017-08-31 06:47] VITALS: BP 150/94
[2017-08-31 08:19] LABS: ABSOLUTE BASOPHIL COUNT 0 /CUMM (0.0-0.2); ABSOLUTE EOSINOPHIL COUNT 0.2 /CUMM (0.0-0.7); ABSOLUTE LYMPH COUNT 1.9 /CUMM (1.2-3.4); ABSOLUTE MONOCYTE COUNT 0.6 /CUMM (0.10-0.60); BASOPHIL % 0.4 % (0.0-2.0); EOSINOPHIL % 2.2 % (0-5); GRANULOCYTE % 68.6 % (42.2-75.2); HEMATOCRIT 38.2 % (42-52); MEAN CORPUSCULAR HGB 27.6 PG (27.0-31.0); MEAN CORPUSCULAR HGB CONC 33.9 G/DL (33.0-37.0); MEAN CORPUSCULAR VOLUME 81.4 FL (80.0-94.0); MEAN PLATELET VOLUME 7.9 FL (7.4-10.4); PLATELET COUNT 211 /CUMM (130-400); RED BLOOD CELL CT 4.69 /CUMM (4.70-6.10); WHITE BLOOD CELL COUNT 8.7 /CUMM (4.8-10.8)
--- NOTE | 2017-08-31 08:43 | PN- Housestaff ---
Yazan Aldrich MD,[facility] 08/31/17 0843: Subjective Follow-up For: Pancreatitis Subjective: Patient visited today, was lying in bed comfortably in no acute distress, was alert and oriented. Reported improved abdominal pain, now being more a soreness. No fever or chills, no shortness of breathing, no chest pain, no other events. Patient was improving, planned to advance diet to clear liquid if tolerate. Review of Systems Constitutional: Reports: see HPI. Objective Last 24 Hrs of Vital Signs/I&O Vital Signs Date Time Temp Pulse Resp B/P B/P Pulse O2 O2 Flow FiO2 Mean Ox Delivery Rate 08/31 0647 97.9 80 18 150/94 95 Room Air 08/30 2242 97.8 77 18 158/90 98 Room Air 08/30 1443 97.8 82 20 142/94 96 Intake & Output 08/31 1600 08/31 0800 08/31 0000 Intake Total 1999 2049 Output Total Balance 1999 2049 Intake, IV 1999 1999 Intake, Oral 0 50 Physical Exam General Appearance: Alert, Oriented X3, Cooperative, No Acute Distress Skin Temp/Moisture Exam: Warm/Dry Sepsis Skin Exam (color): Normal for Ethnicity HEENT: Atraumatic, EOMI, Mucous Membr. moist/pink Cardiovascular: Regular Rate, Normal S1, Normal S2 Lungs: Clear to Auscultation Abdomen: midl epigastric tenderness, relatively distanded Neurological: Normal Speech Extremities: No Edema Current Medications: Current Medications Sig/Jazmin Start time Last Medication Dose Route Stop Time Status Admin Acetaminophen 650 MG ONCE ONE 08/31 0845 DC 08/31 PO 08/31 0846 0946 Acetaminophen 650 MG Q6P PRN 08/29 2345 AC PO Atorvastatin Calcium 80 MG 1700 08/30 1700 AC 08/30 PO 1642 Fenofibrate 145 MG DAILY 08/30 1000 AC 08/31 PO 0945 Heparin Sodium 5,000 UNIT Q8 08/30 0600 AC 08/31 (Porcine) SC 0539 Hydromorphone HCl 1 MG Q4-PRN PRN 08/30 0245 AC 08/31 IV 0947 Insulin Aspart 0 Q4 08/30 1000 AC 08/31 SC 1231 Insulin Detemir 10 UNITS DAILY 08/30 1000 AC 08/31 SC 0946 Lactated Ringer's 1,000 ML .Q4H 02/14 1645 AC 08/31 IV 1233 Lactated Ringer's 1,000 ML .Q4H 08/30 0215 DC 08/30 IV 08/30 1630 1230 Magnesium Sulfate 1 GM .STK-MED ONE 08/31 0034 DC IV 08/31 0035 Magnesium Sulfate 1 GM ONCE ONE 08/30 2330 DC 08/31 Dextrose/Water 100 ML IV 08/31 0329 0030 Melatonin 5 MG AT BEDTIME 08/30 2300 AC 08/30 PO 2302 Nicotine 14 MG Q24 08/30 1000 AC 08/30 TOP 0847 Ondansetron HCl 4 MG Q6P PRN 08/29 2345 AC 08/30 IV 1647 Oxycodone HCl 5 MG Q6P PRN 08/29 2345 AC 08/31 PO 0539 Pantoprazole Sodium 40 MG DAILY 08/30 1000 AC 08/31 IV 0946 Pregabalin 200 MG BID 08/30 1000 AC 08/31 PO 0945 Senna/Docusate Sodium 1 TAB AT BEDTIME 08/30 2200 AC 08/30 PO 2203 Topiramate 25 MG DAILY 08/30 1000 AC 08/31 PO 0945 Vitamin E 800 IU DAILY 08/31 1000 AC 08/31 PO 0945 Zolpidem Tartrate 10 MG AT BEDTIME 08/30 2200 AC PO Last 24 Hrs of Lab/Zafar Results Last 24 Hrs of Labs/Mics: Laboratory Tests 08/31/17 0718: Anion Gap 13, Estimated GFR > 60, BUN/Creatinine Ratio 15.0, Magnesium 1.9, Total Bilirubin 0.8, Direct Bilirubin 0.3, AST 35, ALT 43, Alkaline Phosphatase 81, C-Reactive Prot, Quant 6.0 H, C-React Prot High Sens > 15.0 H, Total Protein 6.7, Albumin 4.3, Triglycerides 586 H, Cholesterol 155, LDL Cholesterol Direct 56.68, LDL Cholesterol, Calc ND, HDL Cholesterol 39 L, Cholesterol/HDL Ratio 4, Lipase 8360 H, CBC w Diff NO MAN DIFF REQ, RBC 4.69 L, MCV 81.4, MCH 27.6, MCHC 33.9, RDW 14.0, MPV 7.9, Gran % 68.6, Lymphocytes % 22.2, Monocytes % 6.6, Eosinophils % 2.2, Basophils % 0.4, Absolute Granulocytes 6.0, Absolute Lymphocytes 1.9, Absolute Monocytes 0.6, Absolute Eosinophils 0.2, Absolute Basophils 0 08/30/17 1935: Lactic Acid 2.2 H 08/30/17 1641: Lactic Acid 2.3 H 08/30/17 1639: Lactic Acid Cancelled Assessment/Plan Assessment: Patient is 52 YO male with presented with N and V, abdominal pain from 2w ago smoker, FH + of pancreas cancer PMH: DM, HTN, HLD, MIGRAINE, spinal injury S/P surgery on chronic pain meds, cholecystectomy in 2008 VS on admission: Temp 98.9, pulse 89, RR: 18, BP 127/84, PO2 98 on RA LAbs on admission: CBC 18.4, Hgb 14.8, Plat 285, granulocyte 13.8, NA 134, K 5, Chlorise 96, carbon dioxide 18, Anion gap 20, BU&N 34, Cr 1.4, Glucose 307, Lactic acid 3.9 trended to 3.3, Alt 58, AST 59, Lipase 1347, TG>900 #Acute pancreatitis: BISAP score 1 Most likely due to hypertrigylecerdimea (982) RUQ U/S: hepatic steatosis. No other gross abnormality CT abdomen: Enlargement to the pancreatic head with adjacent fat stranding suggestive of pancreatitis. No drainable fluid collections identified. Evaluation is slightly limited secondary to the lack of IV contrast. Hepatic steatosis. Sigmoid diverticulosis without evidence of diverticulitis. CRP 1.6 -continue IV hydration with lactated Ringer -Pain control -Will check CRP for 3 days as a prognostic indicator -f/u GI consult for enlargement of pancreatic head -f/u repeat cbc, bep, lft, lipase, lipid panel, crp for tomorrow -advanced diet as tolerated, today clear liquide diet - Lipase level increased, will add amylase level - follow with GI after discharge for possbiel repeat endoscopic ultrasound #Lactic acidosis Most likely due to dehydration LA 3.9 -> 2.2 -IV hydration with LR @ 250 -Trend lactic acid #Atypical chest pain: Patient reports having exertional chest pain radiating to the right arm serial EKGs and troponins negative Chest x-ray was normal -Most likely referred from abdominal pain -Control with pain meds #Diabetes mellitus type 2 -follow endocrinology recs for insulin #leukocytosis 18.4 -> 8.7 -possibly reactive as pt afebrile clear liq diet, advance as tolerated Full code DVT prophylaxis with subcutaneous heparin Problem List: 1. Acute pancreatitis Pain Ratin Pain Location: note at time of interview Pain Goal: Pain 4 or less Pain Plan: Continue current plan Tomorrow's Labs & Rationales: CBC BEP Elvin Kim 08/31/17 1112: Attending MD Review Statement Attending Statement Attending MD Statement: examined this patient, discuss w/resident/PA/DRIVING TEACHER, agreed w/resident/PA/DRIVING TEACHER, discussed with family, reviewed EMR data (avail), discussed with nursing, discussed with case mgmt, reviewed images, amended to note Attending Assessment/Plan: 52 o/m admitted for acute pancreatitis. CT abd/pelvis suggestive of enlarged pancreatic head. NPO, IVF aggresive hydration, GI consulted, pain control. Continue with oral meds. Advance diet as tolerated. O/p F/u with GI for EUS as per GI. Endocrinology following for Uncontrolled DM hbaic 10. On insulin regimen. Hypertriglyceredemia cont statin therapy as per GI. gi/dvt prophyalxis full code.
--- NOTE | 2017-08-31 11:22 | PN- Diabetes ---
Assessment/Plan Assessment: 52 years old male with PMH significant for DM type 2 on meformin,HTN,HLD, MIGRAINE,spinal injury S/P surgery on chronic pain meds presented with abdominal pain and nausea started 2 weeks ago after his pain medication was adjusted. In ER, blood work showed lipase 1347, amylase 43, TRIG 982, LDL 165, elevated lactic acid of 3.9 along with HbA1c of 10.2%. He denied any ETOH uses. He has been kept NPO and has bee on LR at 150 ml/hour. His FSGs were 197 and 242. In addition, he was put on Atorvastatin 80 mg daily and Fenofibrate 145 mg daily. He was put on Levemir 10 units daily and Novolog coverage every 4 hours. His FSGs were 145, 189, 197. Repeat lab this morning showed TRIG 586 and Lipase 8360. Plan: continue the current insulin regimen for now. monitor FSGs and electrolytes. will follow. Subjective Subjective: He feels slightly better this morning. Objective Last 24 Hrs of Vital Signs/I&O Vital Signs Date Time Temp Pulse Resp B/P B/P Pulse O2 O2 Flow FiO2 Mean Ox Delivery Rate 08/31 0647 97.9 80 18 150/94 95 Room Air 08/30 2242 97.8 77 18 158/90 98 Room Air 08/30 1443 97.8 82 20 142/94 96 Intake & Output 08/31 1600 08/31 0800 08/31 0000 Intake Total 1999 2049 Output Total Balance 1999 2049 Intake, IV 1999 1999 Intake, Oral 0 50 Findings Pertinent Lab/Zafar Results: Laboratory Tests 08/31 08/30 08/30 0718 1935 1641 Chemistry Sodium (137 - 145 mmol/L) 134 L Potassium (3.5 - 5.1 mmol/L) 4.5 Chloride (98 - 107 mmol/L) 99 Carbon Dioxide (22 - 30 mmol/L) 22 Anion Gap (5 - 16) 13 BUN (9 - 20 mg/dL) 12 Creatinine (0.7 - 1.2 mg/dL) 0.8 Estimated GFR (>60 ml/min) > 60 BUN/Creatinine Ratio (7 - 25 %) 15.0 Lactic Acid (0.7 - 2.1 mmol/L) 2.2 H 2.3 H Magnesium (1.6 - 2.3 mg/dL) 1.9 Total Bilirubin (0.2 - 1.3 mg/dL) 0.8 Direct Bilirubin (< 0.4 mg/dL) 0.3 AST (17 - 59 U/L) 35 ALT (21 - 72 U/L) 43 Alkaline Phosphatase (< 127 U/L) 81 C-Reactive Prot, Quant (<1.0 mg/dL) 6.0 H C-React Prot High Sens (1.0 - 3.0 mg/L) > 15.0 H Total Protein (6.3 - 8.2 g/dL) 6.7 Albumin (3.5 - 5.0 g/dL) 4.3 Triglycerides (<150 mg/dL) 586 H Cholesterol (< 200 MG/DL) 155 LDL Cholesterol Direct (<100 mg/dL) 56.68 LDL Cholesterol, Calc (65 - 129 MG/DL) ND HDL Cholesterol (40 - 60 mg/dL) 39 L Cholesterol/HDL Ratio (0.00 - 4.88 %) 4 Lipase (23 - 300 U/L) 8360 H Hematology CBC w Diff NO MAN DIFF REQ WBC (4.8 - 10.8 /CUMM) 8.7 RBC (4.70 - 6.10 /CUMM) 4.69 L Hgb (14.0 - 18.0 G/DL) 13.0 L Hct (42 - 52 %) 38.2 L MCV (80.0 - 94.0 FL) 81.4 MCH (27.0 - 31.0 PG) 27.6 MCHC (33.0 - 37.0 G/DL) 33.9 RDW (11.5 - 14.5 %) 14.0 Plt Count (130 - 400 /CUMM) 211 MPV (7.4 - 10.4 FL) 7.9 Gran % (42.2 - 75.2 %) 68.6 Lymphocytes % (20.5 - 51.1 %) 22.2 Monocytes % (1.7 - 9.3 %) 6.6 Eosinophils % (0 - 5 %) 2.2 Basophils % (0.0 - 2.0 %) 0.4 Absolute Granulocytes (1.4 - 6.5 /CUMM) 6.0 Absolute Lymphocytes (1.2 - 3.4 /CUMM) 1.9 Absolute Monocytes (0.10 - 0.60 /CUMM) 0.6 Absolute Eosinophils (0.0 - 0.7 /CUMM) 0.2 Absolute Basophils (0.0 - 0.2 /CUMM) 0 08/30 08/30 1639 1120 Chemistry Lactic Acid (0.7 - 2.1 mmol/L) Cancelled 2.8 H
[2017-08-31 15:05] VITALS: BP 138/90
[2017-08-31 23:15] VITALS: BP 142/100
[2017-09-01 07:33] VITALS: BP 120/78
--- NOTE | 2017-09-01 08:21 | PN- Housestaff ---
Yazan Aldrich MD,[facility] 09/01/17 0821: Subjective Follow-up For: Pancreatitis Subjective: Patient visited today, was lying in bed comfortably in no acute distress, was alert and oriented. Reported improved abdominal pain, but complained of sinusitis as he has the chronic problem. No fever or chills, no shortness of breathing, no chest pain, no other events. Patient was improving, planned to advance diet again to full liquid if tolerate. Sliding scale on insulin administration was adjusted based on endocrinology consult. Review of Systems Constitutional: Reports: see HPI. Objective Last 24 Hrs of Vital Signs/I&O Vital Signs Date Time Temp Pulse Resp B/P B/P Pulse O2 O2 Flow FiO2 Mean Ox Delivery Rate 09/01 0733 97.9 68 20 120/78 96 Room Air 08/31 2315 98.1 77 20 142/100 96 Room Air 08/31 1505 98.0 75 20 138/90 97 Intake & Output 09/01 1600 09/01 0800 09/01 0000 Intake Total 2100 2230 Output Total Balance 2100 2230 Intake, IV 2000 1750 Intake, Oral 100 480 Physical Exam General Appearance: Alert, Oriented X3, Cooperative, No Acute Distress Skin Temp/Moisture Exam: Warm/Dry Sepsis Skin Exam (color): Normal for Ethnicity HEENT: Atraumatic, EOMI, Mucous Membr. moist/pink Cardiovascular: Normal S1, Normal S2 Lungs: Clear to Auscultation Abdomen: Soft, No Tenderness Neurological: Normal Speech Extremities: No Edema Current Medications: Current Medications Sig/Jazmin Start time Last Medication Dose Route Stop Time Status Admin Acetaminophen 650 MG Q6P PRN 08/29 2345 AC PO Atorvastatin Calcium 80 MG 1700 08/30 1700 AC 08/31 PO 1703 Fenofibrate 145 MG DAILY 08/30 1000 AC 09/01 PO 0918 Heparin Sodium 5,000 UNIT Q8 08/30 0600 AC 09/01 (Porcine) SC 0611 Hydromorphone HCl 1 MG Q4-PRN PRN 08/30 0245 AC 09/01 IV 0616 Insulin Aspart 0 Q4 08/30 1000 AC 08/31 SC 1231 Insulin Detemir 10 UNITS DAILY 08/30 1000 AC 09/01 SC 0917 Lactated Ringer's 1,000 ML .Q4H 08/30 1645 AC 09/01 IV 0918 Melatonin 5 MG AT BEDTIME 08/30 2300 AC 08/31 PO 2230 Nicotine 14 MG Q24 08/30 1000 AC 08/30 TOP 0847 Ondansetron HCl 4 MG Q6P PRN 08/29 2345 AC 09/01 IV 0223 Oxycodone HCl 5 MG Q6P PRN 08/29 2345 AC 09/01 PO 0929 Pantoprazole Sodium 40 MG DAILY 08/30 1000 AC 09/01 IV 0917 Pregabalin 200 MG BID 08/30 1000 AC 09/01 PO 0917 Senna/Docusate Sodium 1 TAB AT BEDTIME 08/30 2200 AC 08/31 PO 2229 Topiramate 25 MG DAILY 08/30 1000 AC 09/01 PO 0918 Vitamin E 800 IU DAILY 08/31 1000 AC 09/01 PO 0918 Zolpidem Tartrate 10 MG AT BEDTIME 08/30 2200 AC PO Last 24 Hrs of Lab/Zafar Results Last 24 Hrs of Labs/Mics: Laboratory Tests 09/01/17 0750: Anion Gap 11, Estimated GFR > 60, BUN/Creatinine Ratio 13.8, Amylase 99, Lipase 1479 H, CBC w Diff NO MAN DIFF REQ, RBC 4.05 L, MCV 80.8, MCH 27.5, MCHC 34.0, RDW 13.8, MPV 8.1, Gran % 58.6, Lymphocytes % 31.1, Monocytes % 7.2, Eosinophils % 2.9, Basophils % 0.2, Absolute Granulocytes 3.3, Absolute Lymphocytes 1.7, Absolute Monocytes 0.4, Absolute Eosinophils 0.2, Absolute Basophils 0 Assessment/Plan Assessment: Patient is 52 YO male with presented with N and V, abdominal pain from 2w ago smoker, FH + of pancreas cancer PMH: DM, HTN, HLD, MIGRAINE, spinal injury S/P surgery on chronic pain meds, cholecystectomy in 2008 VS on admission: Temp 98.9, pulse 89, RR: 18, BP 127/84, PO2 98 on RA LAbs on admission: CBC 18.4, Hgb 14.8, Plat 285, granulocyte 13.8, NA 134, K 5, Chlorise 96, carbon dioxide 18, Anion gap 20, BU&N 34, Cr 1.4, Glucose 307, Lactic acid 3.9 trended to 3.3, Alt 58, AST 59, Lipase 1347, TG>900 #Acute pancreatitis: BISAP score 1 Most likely due to hypertrigylecerdimea (982) RUQ U/S: hepatic steatosis. No other gross abnormality CT abdomen: Enlargement to the pancreatic head with adjacent fat stranding suggestive of pancreatitis. No drainable fluid collections identified. Evaluation is slightly limited secondary to the lack of IV contrast. Hepatic steatosis. Sigmoid diverticulosis without evidence of diverticulitis. CRP 1.6 - continue IV hydration with lactated Ringer - Pain controled - Will check CRP for 3 days as a prognostic indicator - f/u GI consult in outpatient for enlargement of pancreatic head - advanced diet as tolerated, today full liquide diet - Lipase level increased, will add amylase level - follow with GI after discharge for possbiel repeat endoscopic ultrasound considering risk factors of FH and smoking #Lactic acidosis Most likely due to dehydration, resolved -IV hydration with LR @ 250 #Atypical chest pain: Patient reports having exertional chest pain radiating to the right arm serial EKGs and troponins negative Chest x-ray was normal -Most likely referred from abdominal pain -Control with pain meds #Diabetes mellitus type 2 Restarted diet - detemir 10u daily - started Sliding scale TID/HS -follow endocrinology recs for insulin #leukocytosis 18.4 -> normalized -possibly reactive as pt afebrile Full liq diet, advance as tolerated to consistant carbohydrate Full code DVT prophylaxis with subcutaneous heparin Problem List: 1. Acute pancreatitis Pain Ratin Pain Location: Sinus Pain Goal: Pain 4 or less Pain Plan: Continue current plan Tomorrow's Labs & Rationales: CBC BEP Elvin Kim 09/01/17 1158: Attending MD Review Statement Attending Statement Attending MD Statement: examined this patient, discuss w/resident/PA/AIRCRAFT COMMUNICATOR, agreed w/resident/PA/AIRCRAFT COMMUNICATOR, discussed with family, reviewed EMR data (avail), discussed with nursing, discussed with case mgmt, reviewed images, amended to note Attending Assessment/Plan: 52 o/m admitted for acute pancreatitis. CT abd/pelvis suggestive of enlarged pancreatic head. Patient seen/examined bedside. Patient reports pain better but c/o headache and sinusitis pain. IVF aggresive hydration, GI consulted, pain control. Continue with oral meds. Advance diet as tolerated. O/p F/u with GI for EUS as per GI. Endocrinology following for Uncontrolled DM hbaic 10. On insulin regimen. Hypertriglyceredemia cont statin therapy as per GI. Sinusitis obtain xray PNS view. Supportive treatment.. gi/dvt prophyalxis full code.
[2017-09-01 08:24] LABS: ABSOLUTE BASOPHIL COUNT 0 /CUMM (0.0-0.2); ABSOLUTE EOSINOPHIL COUNT 0.2 /CUMM (0.0-0.7); ABSOLUTE GRANULOCYTE CT 3.3 /CUMM (1.4-6.5); ABSOLUTE MONOCYTE COUNT 0.4 /CUMM (0.10-0.60); RED BLOOD CELL CT 4.05 /CUMM (4.70-6.10); WHITE BLOOD CELL COUNT 5.6 /CUMM (4.8-10.8)
[2017-09-01 08:40] LABS: ABSOLUTE LYMPH COUNT 1.7 /CUMM (1.2-3.4); BASOPHIL % 0.2 % (0.0-2.0); EOSINOPHIL % 2.9 % (0-5); GRANULOCYTE % 58.6 % (42.2-75.2); MEAN CORPUSCULAR HGB 27.5 PG (27.0-31.0); MEAN CORPUSCULAR VOLUME 80.8 FL (80.0-94.0); MEAN PLATELET VOLUME 8.1 FL (7.4-10.4); PLATELET COUNT 184 /CUMM (130-400); RBC DISTRIBUTION WIDTH 13.8 % (11.5-14.5)
[2017-09-01 08:41] LABS: HEMATOCRIT 32.7 % (42-52)
--- NOTE | 2017-09-01 13:52 | PN- Diabetes ---
Assessment/Plan Diabetes Assessment: 52 years old male with PMH significant for DM type 2 on meformin,HTN,HLD, MIGRAINE,spinal injury S/P surgery on chronic pain meds presented with abdominal pain and nausea started 2 weeks ago after his pain medication was adjusted. In ER, blood work showed lipase 1347, amylase 43, TRIG 982, LDL 165, elevated lactic acid of 3.9 along with HbA1c of 10.2%. He denied any ETOH uses. He has been kept NPO and has bee on LR at 150 ml/hour. His FSGs were 197 and 242. In addition, he was put on Atorvastatin 80 mg daily and Fenofibrate 145 mg daily. He was put on Levemir 10 units daily and Novolog coverage every 4 hours. His FSGs were 144, 162 and 150. Clinically he has been feeling better. Now he is on full liquid diet. Plan: 1. continue Levemir 10 units daily; 2. stop Novolog coverage every 4 hours; 3. start Novolog coverage before meals and Novolog coverage at bedtime; detail see the inpatient DM orders; 4. monitor FSGs. will follow. Inpatient Diabetes Orders Before Each Meal: Bolus Insulin: Novolog < 80 mg/dl: no coverage 80-100 mg/dl: 2 units 101-120 mg/dl: 2 units 121-150 mg/dl: 2 units 151-200 mg/dl: 3 units 201-250 mg/dl: 4 units 251-300 mg/dl: 5 units 301-350 mg/dl: 6 units 351-400 mg/dl: 8 units > 400 mg/dl: 10 units Bedtime: Bolus Insulin: Novolog < 80 mg/dl: no coverage 80-100 mg/dl: no coverage 101-120 mg/dl: no coverage 121-150 mg/dl: no coverage 151-200 mg/dl: no coverage 201-250 mg/dl: 2 units 251-300 mg/dl: 3 units 301-350 mg/dl: 4 units 351-400 mg/dl: 5 units > 400 mg/dl: 6 units Subjective Subjective: He feels better. Objective Last 24 Hrs of Vital Signs/I&O Vital Signs Date Time Temp Pulse Resp B/P B/P Pulse O2 O2 Flow FiO2 Mean Ox Delivery Rate 09/01 0733 97.9 68 20 120/78 96 Room Air 08/31 2315 98.1 77 20 142/100 96 Room Air 08/31 1505 98.0 75 20 138/90 97 Intake & Output 09/01 1600 09/01 0800 09/01 0000 Intake Total 20990 Output Total Balance 2099 2229 Intake, IV 1999 1750 Intake, Oral 100 480 Patient 211 lb Weight Findings Pertinent Lab/Zafar Results: Laboratory Tests 09/01 0750 Chemistry Sodium (137 - 145 mmol/L) 136 L Potassium (3.5 - 5.1 mmol/L) 4.2 Chloride (98 - 107 mmol/L) 101 Carbon Dioxide (22 - 30 mmol/L) 24 Anion Gap (5 - 16) 11 BUN (9 - 20 mg/dL) 11 Creatinine (0.7 - 1.2 mg/dL) 0.8 Estimated GFR (>60 ml/min) > 60 BUN/Creatinine Ratio (7 - 25 %) 13.8 C-Reactive Prot, Quant (<1.0 mg/dL) 6.1 H C-React Prot High Sens (1.0 - 3.0 mg/L) > 15.0 H Amylase (30 - 110 U/L) 99 Lipase (23 - 300 U/L) 1479 H Hematology CBC w Diff NO MAN DIFF REQ WBC (4.8 - 10.8 /CUMM) 5.6 RBC (4.70 - 6.10 /CUMM) 4.05 L Hgb (14.0 - 18.0 G/DL) 11.1 L Hct (42 - 52 %) 32.7 L MCV (80.0 - 94.0 FL) 80.8 MCH (27.0 - 31.0 PG) 27.5 MCHC (33.0 - 37.0 G/DL) 34.0 RDW (11.5 - 14.5 %) 13.8 Plt Count (130 - 400 /CUMM) 184 MPV (7.4 - 10.4 FL) 8.1 Gran % (42.2 - 75.2 %) 58.6 Lymphocytes % (20.5 - 51.1 %) 31.1 Monocytes % (1.7 - 9.3 %) 7.2 Eosinophils % (0 - 5 %) 2.9 Basophils % (0.0 - 2.0 %) 0.2 Absolute Granulocytes (1.4 - 6.5 /CUMM) 3.3 Absolute Lymphocytes (1.2 - 3.4 /CUMM) 1.7 Absolute Monocytes (0.10 - 0.60 /CUMM) 0.4 Absolute Eosinophils (0.0 - 0.7 /CUMM) 0.2 Absolute Basophils (0.0 - 0.2 /CUMM) 0
[2017-09-01 13:57] VITALS: BP 142/70
--- NOTE | 2017-09-01 18:14 | RADIOLOGY REPORT ---
EXAMINATION: XR SINUSES CLINICAL INFORMATION: Evaluate for sinusitis. Headaches sinus tenderness. COMPARISON: None TECHNIQUE: 4 views of the sinuses. Next field exam is slightly limited because of slightly oblique positioning Allowing for this limitation the sinuses appear clear. FINDINGS: The surrounding bone and soft tissues are within normal limits except for metallic density related to dental procedures and orthopedic fixation in the cervical spine IMPRESSION: Slightly limited exam because of patient positioning and projection. No evidence for sinus disease.
[2017-09-01 22:28] VITALS: BP 142/92
[2017-09-02 06:32] VITALS: BP 134/90
--- NOTE | 2017-09-02 09:15 | PN- Housestaff ---
Yazan Aldrich MD,[facility] 09/02/17 0914: Subjective Follow-up For: Pancreatitis Subjective: Patient visited today, was lying in bed comfortably in no acute distress, was alert and oriented. Tolerated food well. Mininal abdominal discomfort. Had already BM. No fever or chills, no shortness of breathing, no chest pain, no other events. Planend to advance diet. Review of Systems Constitutional: Reports: see HPI. Objective Last 24 Hrs of Vital Signs/I&O Vital Signs Date Time Temp Pulse Resp B/P B/P Pulse O2 O2 Flow FiO2 Mean Ox Delivery Rate 09/02 0632 98.0 66 20 134/90 96 Room Air 09/01 2228 99.2 74 18 142/92 96 09/01 1357 97.0 78 18 142/70 94 Room Air Intake & Output 09/02 1600 09/02 0800 09/02 0000 Intake Total 1250 480 Output Total Balance 1250 480 Intake, IV 1200 Intake, Oral 50 480 Physical Exam General Appearance: Alert, Oriented X3, Cooperative, No Acute Distress Skin: No Significant Lesion Skin Temp/Moisture Exam: Warm/Dry HEENT: Atraumatic, EOMI, Mucous Membr. moist/pink Lungs: Clear to Auscultation Abdomen: mild epigastric tenderness Neurological: Normal Speech, Strength at 5/5 X4 Ext Extremities: No Edema Current Medications: Current Medications Sig/Jazmin Start time Last Medication Dose Route Stop Time Status Admin Acetaminophen 650 MG .STK-MED ONE 09/01 1400 DC PO 09/01 1401 Acetaminophen 650 MG Q6P PRN 08/29 2345 AC 09/01 PO 1400 Atorvastatin Calcium 80 MG 1700 08/30 1700 AC 09/01 PO 1642 Fenofibrate 145 MG DAILY 08/30 1000 AC 09/02 PO 0929 Heparin Sodium 5,000 UNIT Q8 08/30 0600 AC 09/02 (Porcine) SC 0531 Hydromorphone HCl 1 MG Q4-PRN PRN 08/30 0245 DC 09/02 IV 0928 Insulin Aspart 0 AC & AT BEDTIME 09/01 1700 AC 09/02 SC 1226 Insulin Aspart 0 Q4 08/30 1000 DC 08/31 SC 1231 Insulin Detemir 10 UNITS DAILY 08/30 1000 AC 09/02 SC 0928 Lactated Ringer's 1,000 ML .[id number] 08/30 1645 AC 09/02 IV 0930 Melatonin 5 MG AT BEDTIME 08/30 2300 AC 09/01 PO 2121 Nicotine 14 MG Q24 08/30 1000 AC 08/30 TOP 0847 Ondansetron HCl 4 MG Q6P PRN 08/29 2345 AC 09/01 IV 0223 Oxycodone HCl 10 MG Q4-6 PRN PRN 09/02 1015 AC PO Oxycodone HCl 5 MG Q6P PRN 08/29 2345 AC 09/01 PO 2127 Pantoprazole Sodium 40 MG DAILY 08/30 1000 AC 09/02 IV 0931 Patient Medication 1 ED ONE ONE 09/01 1545 DC 09/01 Teaching ED 09/01 1546 1643 Pregabalin 200 MG BID 08/30 1000 AC 09/02 PO 0929 Senna/Docusate Sodium 1 TAB AT BEDTIME 08/30 2200 AC 09/01 PO 2121 Simethicone 40 MG ONCE ONE 09/01 2030 DC 09/01 PO 09/01 Topiramate 25 MG DAILY 08/30 1000 AC 09/02 PO 0929 Vitamin E 800 IU DAILY 08/31 1000 AC 09/02 PO 0929 Zolpidem Tartrate 10 MG AT BEDTIME 08/30 2200 AC PO Last 24 Hrs of Lab/Zafar Results Last 24 Hrs of Labs/Mics: Laboratory Tests 09/02/17 0701: Anion Gap 10, Estimated GFR > 60, BUN/Creatinine Ratio 13.3, Lipase 1266 H Assessment/Plan Assessment: Patient is 52 YO male with presented with N and V, abdominal pain from 2w ago smoker, FH + of pancreas cancer PMH: DM, HTN, HLD, MIGRAINE, spinal injury S/P surgery on chronic pain meds, cholecystectomy in 2008 VS on admission: Temp 98.9, pulse 89, RR: 18, BP 127/84, PO2 98 on RA LAbs on admission: CBC 18.4, Hgb 14.8, Plat 285, granulocyte 13.8, NA 134, K 5, Chlorise 96, carbon dioxide 18, Anion gap 20, BU&N 34, Cr 1.4, Glucose 307, Lactic acid 3.9 trended to 3.3, Alt 58, AST 59, Lipase 1347, TG>900 #Acute pancreatitis: Most likely due to hypertrigylecerdimea (982) RUQ U/S: hepatic steatosis. No other gross abnormality CT abdomen: Enlargement to the pancreatic head with adjacent fat stranding suggestive of pancreatitis. No drainable fluid collections identified. Evaluation is slightly limited secondary to the lack of IV contrast. Hepatic steatosis. Sigmoid diverticulosis without evidence of diverticulitis. CRP 1.6 - Pain controled - advanced diet as tolerated, today diabetic diet - follow with GI after discharge for possbiel repeat endoscopic ultrasound considering risk factors of FH and smoking - patient improving - decreased IV fluids to 75 #Lactic acidosis Most likely due to dehydration, resolved #Atypical chest pain: Patient reports having exertional chest pain radiating to the right arm serial EKGs and troponins negative Chest x-ray was normal -Most likely referred from abdominal pain -Control with pain meds #Diabetes mellitus type 2 Restarted diet - detemir 10u daily - started Sliding scale TID/HS -follow endocrinology recs for insulin #leukocytosis 18.4 -> normalized -possibly reactive as pt afebrile Full liq diet, advance as tolerated to consistant carbohydrate Full code DVT prophylaxis with subcutaneous heparin Problem List: 1. Acute pancreatitis Pain Ratin Pain Location: Abdominal Pain Goal: Pain 4 or less Pain Plan: Continue current plan Tomorrow's Labs & Rationales: CBC BEP Elvin Kim 09/02/17 1108: Attending MD Review Statement Attending Statement Attending MD Statement: examined this patient, discuss w/resident/PA/CASTING INSPECTOR, agreed w/resident/PA/CASTING INSPECTOR, discussed with family, reviewed EMR data (avail), discussed with nursing, discussed with case mgmt, reviewed images, amended to note Attending Assessment/Plan: 52 o/m admitted for acute pancreatitis. CT abd/pelvis suggestive of enlarged pancreatic head. Patient seen/examined bedside. Patient reports feeling better sinus/Headache xray negative for acute disease. IVF hydration, GI consulted, pain control. Continue with oral meds. Advance diet as tolerated. O/p F/u with GI for EUS as per GI. Endocrinology following for Uncontrolled DM hbaic 10. On insulin regimen. Hypertriglyceredemia cont statin therapy as per GI. gi/dvt prophyalxis full code. anticipate dc planning as per GI and endo.
--- NOTE | 2017-09-02 12:23 | PN- Diabetes ---
Assessment/Plan Diabetes Assessment: Recent states his abdominal pain is getting less. His diet has been advanced. His fingerstick blood sugars yesterday were good with sugar 150 before breakfast , 161 before lunch, 151 before dinner, and 184 bedtime. This morning his sugar was 157 before breakfast and 210 before lunch. The patient is on Levemir 10 units once a day as well as NovoLog coverage before meals starting with 2 units for 80-150 and a separate NovoLog bedtime sliding scale. Plan: Suggest continue the same insulin. We will observe his sugars today and as his diet improves and further adjustments may be necessary. Subjective Subjective: Feels improved Review of Systems Constitutional: Denies: chills, fever. Cardiovascular: Denies: chest pain. Respiratory: Denies: short of breath. Gastrointestinal: Reports: abdominal pain (lessening). Skin: Reports: no symptoms. Objective Last 24 Hrs of Vital Signs/I&O Vital Signs Date Time Temp Pulse Resp B/P B/P Pulse O2 O2 Flow FiO2 Mean Ox Delivery Rate 09/02 0632 98.0 66 20 134/90 96 Room Air 09/01 2228 99.2 74 18 142/92 96 09/01 1357 97.0 78 18 142/70 94 Room Air Intake & Output 09/02 1600 09/02 0800 09/02 0000 Intake Total 1250 480 Output Total Balance 1250 480 Intake, IV 1200 Intake, Oral 50 480 Vital Signs Date Time Temp Pulse Resp B/P B/P Pulse O2 O2 Flow FiO2 Mean Ox Delivery Rate 09/02 0632 98.0 66 20 134/90 96 Room Air 09/01 2228 99.2 74 18 142/92 96 09/01 1357 97.0 78 18 142/70 94 Room Air Intake & Output 09/02 1600 09/02 0800 09/02 0000 Intake Total 1250 480 Output Total Balance 1250 480 Intake, IV 1200 Intake, Oral 50 480 Physical Exam General Appearance: alert, awake, comfortable Head: normal appearance Respiratory: normal breath sounds Abdomen: normal bowel sounds, soft Extremities: normal inspection Current Medications: Current Medications Sig/Jazmin Start time Last Medication Dose Route Stop Time Status Admin Acetaminophen 650 MG .STK-MED ONE 09/01 1400 DC PO 09/01 1401 Acetaminophen 650 MG Q6P PRN 08/29 2345 AC 09/01 PO 1400 Atorvastatin Calcium 80 MG 1700 08/30 1700 AC 09/01 PO 1642 Fenofibrate 145 MG DAILY 08/30 1000 AC 09/02 PO 0929 Heparin Sodium 5,000 UNIT Q8 08/30 0600 AC 09/02 (Porcine) SC 0531 Hydromorphone HCl 1 MG Q4-PRN PRN 08/30 0245 DC 09/02 IV 0928 Insulin Aspart 0 AC & AT BEDTIME 09/01 1700 AC 09/02 SC 0928 Insulin Aspart 0 Q4 08/30 1000 DC 08/31 SC 1231 Insulin Detemir 10 UNITS DAILY 08/30 1000 AC 09/02 SC 0928 Lactated Ringer's 1,000 ML .[id number] 08/30 1645 AC 09/02 IV 0930 Melatonin 5 MG AT BEDTIME 08/30 2300 AC 09/01 PO 2121 Nicotine 14 MG Q24 08/30 1000 AC 08/30 TOP 0847 Ondansetron HCl 4 MG Q6P PRN 08/29 2345 AC 09/01 IV 0223 Oxycodone HCl 10 MG Q4-6 PRN PRN 09/02 1015 AC PO Oxycodone HCl 5 MG Q6P PRN 08/29 2345 AC 09/01 PO 2127 Pantoprazole Sodium 40 MG DAILY 08/30 1000 AC 09/02 IV 0931 Patient Medication 1 ED ONE ONE 09/01 1545 DC 09/01 Teaching ED 09/01 1546 1643 Pregabalin 200 MG BID 08/30 1000 AC 09/02 PO 0929 Senna/Docusate Sodium 1 TAB AT BEDTIME 08/30 2200 AC 09/01 PO 2121 Simethicone 40 MG ONCE ONE 09/01 2030 DC 09/01 PO 09/01 Topiramate 25 MG DAILY 08/30 1000 AC 09/02 PO 0929 Vitamin E 800 IU DAILY 08/31 1000 AC 09/02 PO 0929 Zolpidem Tartrate 10 MG AT BEDTIME 08/30 2200 AC PO Findings Pertinent Lab/Zafar Results: Laboratory Tests 09/02 0701 Chemistry Sodium (137 - 145 mmol/L) 138 Potassium (3.5 - 5.1 mmol/L) 4.4 Chloride (98 - 107 mmol/L) 104 Carbon Dioxide (22 - 30 mmol/L) 25 Anion Gap (5 - 16) 10 BUN (9 - 20 mg/dL) 12 Creatinine (0.7 - 1.2 mg/dL) 0.9 Estimated GFR (>60 ml/min) > 60 BUN/Creatinine Ratio (7 - 25 %) 13.3 Lipase (23 - 300 U/L) 1266 H
[2017-09-02 13:45] VITALS: BP 150/70
[2017-09-02 21:38] VITALS: BP 164/90
[2017-09-03 06:55] VITALS: BP 122/86
[2017-09-03 08:26] LABS: ABSOLUTE BASOPHIL COUNT 0 /CUMM (0.0-0.2); ABSOLUTE EOSINOPHIL COUNT 0.2 /CUMM (0.0-0.7); ABSOLUTE GRANULOCYTE CT 3.7 /CUMM (1.4-6.5); ABSOLUTE LYMPH COUNT 1.6 /CUMM (1.2-3.4); ABSOLUTE MONOCYTE COUNT 0.4 /CUMM (0.10-0.60); BASOPHIL % 0.3 % (0.0-2.0); EOSINOPHIL % 3.7 % (0-5); MEAN CORPUSCULAR HGB 27.9 PG (27.0-31.0); MEAN CORPUSCULAR HGB CONC 34.7 G/DL (33.0-37.0); MEAN CORPUSCULAR VOLUME 80.6 FL (80.0-94.0); MEAN PLATELET VOLUME 7.9 FL (7.4-10.4); PLATELET COUNT 200 /CUMM (130-400); RBC DISTRIBUTION WIDTH 13.9 % (11.5-14.5); RED BLOOD CELL CT 3.84 /CUMM (4.70-6.10)
--- NOTE | 2017-09-03 09:26 | PN- Housestaff ---
Yazan Aldrich MD,[facility] 09/03/17 0926: Subjective Follow-up For: Acute pancreatitis Subjective: Patient visited today, was lying in bed comfortably in no acute distress, was alert and oriented. reported improved abdominal pain. No fever or chills, no shortness of breathing, no chest pain, no other events. decided to discharge with insuline after education. Review of Systems Constitutional: Reports: see HPI. Objective Last 24 Hrs of Vital Signs/I&O Vital Signs Date Time Temp Pulse Resp B/P B/P Pulse O2 O2 Flow FiO2 Mean Ox Delivery Rate 09/03 0655 98.3 64 20 122/86 95 Room Air 09/02 2138 98.1 72 20 164/90 98 Room Air 09/02 1345 98.0 75 20 150/70 97 Room Air Intake & Output 09/03 1600 09/03 0800 09/03 0000 Intake Total 700 450 Output Total Balance 700 450 Intake, IV 600 Intake, Oral 100 450 Physical Exam General Appearance: Alert, Oriented X3, Cooperative, No Acute Distress Skin: No Significant Lesion Skin Temp/Moisture Exam: Warm/Dry Sepsis Skin Exam (color): Normal for Ethnicity HEENT: Atraumatic, EOMI, Mucous Membr. moist/pink Cardiovascular: Normal S1, Normal S2 Lungs: Clear to Auscultation Abdomen: Soft, improvement in ternderness Extremities: No Edema Current Medications: Current Medications Sig/Jazmin Start time Last Medication Dose Route Stop Time Status Admin Acetaminophen 650 MG Q6P PRN 08/29 2345 AC 09/01 PO 1400 Atorvastatin Calcium 80 MG 1700 08/30 1700 AC 09/02 PO 1702 Fenofibrate 145 MG DAILY 08/30 1000 AC 09/03 PO 0743 Heparin Sodium 5,000 UNIT Q8 08/30 0600 AC 09/03 (Porcine) SC 0626 Insulin Aspart 0 AC & AT BEDTIME 09/01 1700 AC 09/03 SC 1147 Insulin Detemir 10 UNITS DAILY 08/30 1000 AC 09/03 SC 0748 Lactated Ringer's 1,000 ML .[id number] 08/30 1645 AC 09/02 IV 2222 Melatonin 5 MG AT BEDTIME 08/30 2300 AC 09/02 PO 2221 Nicotine 14 MG Q24 08/30 1000 AC 08/30 TOP 0847 Ondansetron HCl 4 MG Q6P PRN 08/29 2345 AC 09/01 IV 0223 Oxycodone HCl 10 MG Q4-6 PRN PRN 09/02 1015 AC 09/03 PO 0630 Oxycodone HCl 5 MG Q6P PRN 08/29 2345 AC 09/01 PO 2127 Pantoprazole Sodium 40 MG DAILY 08/30 1000 AC 09/03 IV 0743 Pregabalin 200 MG BID 08/30 1000 AC 09/03 PO 0754 Senna/Docusate Sodium 1 TAB AT BEDTIME 08/30 2200 AC 09/02 PO 2222 Topiramate 25 MG DAILY 08/30 1000 AC 09/03 PO 0743 Vitamin E 800 IU DAILY 08/31 1000 AC 09/03 PO 0743 Zolpidem Tartrate 10 MG AT BEDTIME 08/30 2199 AC PO Last 24 Hrs of Lab/Zafar Results Last 24 Hrs of Labs/Mics: Laboratory Tests 09/03/17 0742: Anion Gap 11, Estimated GFR > 60, BUN/Creatinine Ratio 15.6, CBC w Diff NO MAN DIFF REQ, RBC 3.84 L, MCV 80.6, MCH 27.9, MCHC 34.7, RDW 13.9, MPV 7.9, Gran % 62.0, Lymphocytes % 27.2, Monocytes % 6.8, Eosinophils % 3.7, Basophils % 0.3, Absolute Granulocytes 3.7, Absolute Lymphocytes 1.6, Absolute Monocytes 0.4, Absolute Eosinophils 0.2, Absolute Basophils 0 Assessment/Plan Assessment: Patient is 52 YO male with presented with N and V, abdominal pain from 2w ago smoker, FH + of pancreas cancer PMH: DM, HTN, HLD, MIGRAINE, spinal injury S/P surgery on chronic pain meds, cholecystectomy in 2008 VS on admission: Temp 98.9, pulse 89, RR: 18, BP 127/84, PO2 98 on RA LAbs on admission: CBC 18.4, Hgb 14.8, Plat 285, granulocyte 13.8, NA 134, K 5, Chlorise 96, carbon dioxide 18, Anion gap 20, BU&N 34, Cr 1.4, Glucose 307, Lactic acid 3.9 trended to 3.3, Alt 58, AST 59, Lipase 1347, TG>900 #Acute pancreatitis: Most likely due to hypertrigylecerdimea (982) RUQ U/S: hepatic steatosis. No other gross abnormality CT abdomen: Enlargement to the pancreatic head with adjacent fat stranding suggestive of pancreatitis. No drainable fluid collections identified. Evaluation is slightly limited secondary to the lack of IV contrast. Hepatic steatosis. Sigmoid diverticulosis without evidence of diverticulitis. CRP 1.6 - Pain controled - advanced diet as tolerated, today diabetic diet - follow with GI after discharge for possbiel repeat endoscopic ultrasound considering risk factors of FH and smoking - stable to discharge #Lactic acidosis Most likely due to dehydration, resolved #Atypical chest pain: Patient reports having exertional chest pain radiating to the right arm serial EKGs and troponins negative Chest x-ray was normal -Most likely referred from abdominal pain -Control with pain meds #Diabetes mellitus type 2 Restarted diet - detemir 10u daily - started Sliding scale TID/HS -follow endocrinology recs for insulin - planned to discharge on insuline #leukocytosis 18.4 -> normalized -possibly reactive as pt afebrile Full liq diet, advance as tolerated to consistant carbohydrate Full code DVT prophylaxis with subcutaneous heparin Problem List: 1. Acute pancreatitis Pain Ratin Pain Location: no pain Pain Goal: Pain 4 or less Pain Plan: continue current plan Tomorrow's Labs & Rationales: NA, plan to discharge Elvin Kim 09/03/17 1054: Attending MD Review Statement Attending Statement Attending MD Statement: examined this patient, discuss w/resident/PA/EDI COORDINATOR, agreed w/resident/PA/EDI COORDINATOR, discussed with family, reviewed EMR data (avail), discussed with nursing, discussed with case mgmt, reviewed images, amended to note Attending Assessment/Plan: 52 o/m admitted for acute pancreatitis. CT abd/pelvis suggestive of enlarged pancreatic head. Patient seen/examined bedside. Patient reports feeling better sinus/Headache xray negative for acute disease. DC IVF hydration, GI consulted Dr Douglas, pain control. Continue with oral meds. Advance diet as tolerated. O/p F/u with GI for EUS as per GI IN 1-2 Weeks of discharge. Endocrinology following for Uncontrolled DM hbaic 10. On insulin regimen. Hypertriglyceredemia cont statin therapy as per GI. gi/dvt prophyalxis full code. anticipate dc planning as per GI and endo. Patient tolerating PO and medically stable for discharge.
[2017-09-03] MEDS ORDERED: TRICOR145 M1 PO ×2 (10:32→13:22)
[2017-09-03] MEDS ORDERED: TYLENOL325 M1 PO (10:32)
--- NOTE | 2017-09-03 10:38 | Patient Discharge Instructions ---
Discharge Instructions General Discharge Information You were seen/treated for: Pancreatitis Watch for these problems: Severe abdominal pain, nausea, vomiting, change in stool, muscle pain, weakness or worsening of anyother problems. Special Instructions: Please follow with your PCP within one week of dischsarge regarding your medications and blood sugar control. Please check your blood sugar regularly. Please follow with your GI doctor for your follow up. This is of special importance considering risk factors of pancrease pathology. Diet Continue normal diet: No Recommended Diet: Diabetic Activity Full Activity/No Limits: No Activity Self Limited: Yes Acute Coronary Syndrome Inclusion Criteria At DC or during hospital stay patient has or had the following: ACS DIAGNOSIS No Discharge Core Measures Meds if any: Prescribed or Continued at Discharge Meds if any: NOT Prescribed or Continued at Discharge Congestive Heart Failure Inclusion Criteria At DC or during hospital stay patient has or had the following: CHF DIAGNOSIS No Discharge Core Measures Meds if any: Prescribed or Continued at Discharge Meds if any: NOT Prescribed or Continued at Discharge Cerebrovascular accident Inclusion Criteria At DC or during hospital stay patient has or had the following: CVA/TIA Diagnosis No Discharge Core Measures Meds if any: Prescribed or Continued at Discharge Meds if any: NOT Prescribed or Continued at Discharge Venous thromboembolism Inclusion Criteria VTE Diagnosis No VTE Type NONE VTE Confirmed by (Test) NONE Discharge Core Measures - Per Current guidelines, there needs to be overlap - treatment for the first 5 days of Warfarin therapy. - If discharged on Warfarin prior to 5 days of - overlap therapy, the patient will need to be - assessed for post discharge needs including - *Post discharge parental anticoagulation - *Warfarin and/or parental anticoagulation education - *Follow up date to check INR post discharge At least 5 days overlap therapy as Inpatient No Meds if any: Prescribed or Continued at Discharge Note: Overlap Therapy is Warfarin and Anticoagulant Meds if any: NOT Prescribed or Continued at Discharge
--- NOTE | 2017-09-03 11:02 | Discharge Summary ---
See Addendum Visit Information Visit Dates Admission Date: 08/29/17 Discharge Date: 09/03/17 Hospital Course Course Attending Physician: Elvin Kim MD Primary Care Physician: Sanjuana Argueta APRN Hospital Course: Patient is 52 YO male with presented with N and V, abdominal pain from 2w ago smoker, FH + of pancreas cancer PMH: DM, HTN, HLD, MIGRAINE, spinal injury S/P surgery on chronic pain meds, cholecystectomy in 2008 VS on admission: Temp 98.9, pulse 89, RR: 18, BP 127/84, PO2 98 on RA LAbs on admission: CBC 18.4, Hgb 14.8, Plat 285, granulocyte 13.8, NA 134, K 5, Chlorise 96, carbon dioxide 18, Anion gap 20, BU&N 34, Cr 1.4, Glucose 307, Lactic acid 3.9 trended to 3.3, Alt 58, AST 59, Lipase 1347, TG>900 Imaging at admission: Abd CT scan: Enlargement to the pancreatic head with adjacent fat stranding suggestive of pancreatitis. No drainable fluid collections identified. Evaluation is slightly limited secondary to the lack of IV contrast. Hepatic steatosis. Sigmoid diverticulosis without evidence of diverticulitis. Patient was admitted to floor for management of following conditions: #Acute pancreatitis: Most likely due to hypertrigylecerdimea (982) RUQ U/S: hepatic steatosis. No other gross abnormality CT abdomen: Enlargement to the pancreatic head with adjacent fat stranding suggestive of pancreatitis. No drainable fluid collections identified. Evaluation is slightly limited secondary to the lack of IV contrast. Hepatic steatosis. Sigmoid diverticulosis without evidence of diverticulitis. CRP 1.6. Patient was admitted to [facility] floor, during the admission supportive management was done. Pain contolled, diet was advanced gradually to diabetic diet. With improvement patient was stable to be discharged. Patient was instructed to follow with GI after discharge for possible need for repeat endoscopic ultrasound considering risk factors of FH and smoking #Lactic acidosis Most likely due to dehydration, resolved #Atypical chest pain: Patient reports having exertional chest pain radiating to the right arm serial EKGs and troponins negative Chest x-ray was normal. We cotinued to monitor the patient. #Diabetes mellitus type 2 Patient was placed on sliding scale insuline and accuchecks. Endo spedialist decided to continue the insuline in outpatient with recommendations to follow. #leukocytosis 18.4 -> normalized -possibly reactive as pt afebrile Full liq diet, advance as tolerated to consistant carbohydrate Full code DVT prophylaxis with subcutaneous heparin with improvement patient was discharged with recommendations below. Allergies: Coded Allergies: penicillin V (UNKNOWN 08/29/17) Disposition Summary Disposition Principal Diagnosis: acute pancreatitis Additional Diagnosis: DM type II Discharge Disposition: home or self care Discharge Instructions General Discharge Information Code Status: Full Code Patient's Diet: Diabetic Patient's Activity: Slef limited Follow-Up Instructions/Appts: Please follow with your PCP within one week of dischsarge regarding your medications and blood sugar control. Please check your blood sugar regularly. Please follow with your GI doctor for your follow up. This is of special importance considering risk factors of pancrease pathology. Medications at Discharge Discharge Medications: Stop taking the following medications: Metformin HCl (Metformin HCl) 1,000 MG TABLET ORAL TWICE DAILY Continue taking these medications: Zolpidem Tartrate (Zolpidem Tartrate) 5 MG TAB 10 Milligram ORAL TAKE AT BEDTIME Qty = 30 Comments: TAKE 1 TABLET BY MOUTH AT BEDTIME - SIG Obtained From [facility] Topiramate (Topiramate) 25 MG TABLET 25 Milligram ORAL NEEDED Qty = 30 Comments: TAKE 1 TABLET BY MOUTH EVERY DAY - SIG Obtained From [facility] Sumatriptan Succinate (Sumatriptan Succinate) 50 MG TAB 50 Milligram ORAL NEEDED Qty = 9 Comments: TAKE 1 TABLET ON THE ONSET OF MIGRAINE - SIG Obtained From [facility] Baclofen (Lioresal) 5 MG TAB 10 Milligram ORAL THREE TIMES DAILY Qty = 90 Comments: TAKE 1 TABLET THREE TIMES A DAY - SIG Obtained From [facility] Pantoprazole Sodium (Pantoprazole Sodium) 40 MG TABLET.DR 40 Milligram ORAL NEEDED Qty = 30 Comments: TAKE ONE TABLET BY MOUTH DAILY - SIG Obtained From [facility] OMEGA-3 ACID ETHYL ESTERS (Napoleon-3 Acid Ethyl Esters) 1 GRAM CAPSULE 1 Gram DAILY Qty = 90 Comments: TAKE ONE CAPSULE BY MOUTH 3 TIMES A DAY - SIG Obtained From [facility] Pregabalin (Lyrica) 100 MG CAPSULE 200 Milligram ORAL TWICE DAILY Comments: Last Taken:09/03/17 Time:9AM Rosuvastatin Calcium (Crestor) 20 MG TABLET 1 Tablet ORAL DAILY Comments: LIPITOR GIVEN 2/17/18 5PM Start taking the following new medications: Insulin Detemir (Levemir) 100 UNIT/ML VIAL 10 Units Inject into fatty tissue DAILY Qty = 10 No Refills Insulin Aspart (Novolog) 100 UNIT/ML VIAL 0 Units Inject into fatty tissue BEFORE MEALS AND AT BEDTIME Qty = 10 No Refills Instructions: Please administer as follow: Blood sugar. less than 80 mg/dl: no units 80-150 mg/dl: 2 units 151-200 mg/dl: 3 units 201-250 mg/dl: 4 units 251-300 mg/dl: 5 units 301-350 mg/dl: 6 units 351-400 mg/dl: 8units more than 400 mg/dl: 10 units and call Comments: Please administer as follow: Blood sugar: less than 80 mg/dl: no units 80-150 mg/dl: 2 units 151-200 mg/dl: 3 units 201-250 mg/dl: 4 units 251-300 mg/dl: 5 units 301-350 mg/dl: 6 units 351-400 mg/dl: 8units more than 400 mg/dl: 10 units and call Fenofibrate Nanocrystallized (Tricor) 145 MG TABLET 145 Milligram ORAL DAILY Qty = 30 Refills = 1 Instructions: . Comments: Last Taken:09/03/17 Time:9AM Copies To: Sanjuana Argueta APRN; Sharmaine QUEZADA,Noah Dillard MD Review Statement Documenting Attending: Julio QUEZADA,Elvin
--- NOTE | 2017-09-03 11:02 | PN- Diabetes ---
Assessment/Plan Diabetes Assessment: This 52-year-old male has a known history of diabetes type 2 associated with obesity. He entered the hospital with acute pancreatitis and evidence of elevated triglycerides. His lactic acid was also elevated. He was on metformin at home prior to admission. The patient is now on Levemir 10 units once a day as well as sliding scale NovoLog starting with 2 units for 80-150. He has not taken insulin prior to this admission. Fingerstick blood sugars are 157 before breakfast, 210 before lunch, 166 before dinner, 258 at bedtime. Fingerstick blood sugar this morning is 203. today were 157 before breakfast, 210 before lunch, 166 before dinner, 258 at bedtime. Fingerstick blood sugar this morning is 203. Fingerstick blood sugars Plan: Suggest that if the patient goes home he should go home on his present insulin regimen. He has not taken insulin before and therefore will need to be taught to take insulin injections. He should discontinue the use of metformin. The patient should be discharged on insulin pens. We will need to prescribe Levemir insulin pens as well as NovoLog insulin pens. He will also need 1 box of pen needles which should be the 32-gauge pen needles. He will need to be taught how to use the insulin pen so that he can take his insulin properly at home. Subjective Subjective: Still has slight epigastric and right upper quadrant pain Review of Systems Constitutional: Denies: chills, fever. Cardiovascular: Denies: chest pain. Respiratory: Denies: cough, short of breath. Gastrointestinal: Reports: abdominal pain. Denies: nausea, vomiting. Skin: Reports: no symptoms. Objective Last 24 Hrs of Vital Signs/I&O Vital Signs Date Time Temp Pulse Resp B/P B/P Pulse O2 O2 Flow FiO2 Mean Ox Delivery Rate 09/03 0555 98.3 64 20 122/86 95 Room Air 09/02 2137 98.1 72 20 164/90 98 Room Air 09/02 1345 98.0 75 20 150/70 97 Room Air Intake & Output 09/03 1600 09/03 0800 09/03 0000 Intake Total 700 450 Output Total Balance 700 450 Intake, IV 600 Intake, Oral 100 450 Vital Signs Date Time Temp Pulse Resp B/P B/P Pulse O2 O2 Flow FiO2 Mean Ox Delivery Rate 09/03 0555 98.3 64 20 122/86 95 Room Air 02/17 2138 98.1 72 20 164/90 98 Room Air 09/02 1345 98.0 75 20 150/70 97 Room Air Intake & Output 09/03 1600 09/03 0800 09/03 0000 Intake Total 700 450 Output Total Balance 700 450 Intake, IV 600 Intake, Oral 100 450 Physical Exam General Appearance: alert, awake, comfortable Head: normal appearance Neck: normal inspection Abdomen: normal bowel sounds, soft Current Medications: Current Medications Sig/Jazmin Start time Last Medication Dose Route Stop Time Status Admin Acetaminophen 650 MG Q6P PRN 08/29 2345 AC 09/01 PO 1400 Atorvastatin Calcium 80 MG 1700 08/30 1700 AC 09/02 PO 1702 Fenofibrate 145 MG DAILY 08/30 1000 AC 09/03 PO 0743 Heparin Sodium 5,000 UNIT Q8 08/30 0600 AC 09/03 (Porcine) SC 0626 Insulin Aspart 0 AC & AT BEDTIME 09/01 1700 AC 09/03 SC 0742 Insulin Detemir 10 UNITS DAILY 08/30 1000 AC 09/03 SC 0748 Lactated Ringer's 1,000 ML .[id number] 08/30 1645 AC 09/02 IV 2222 Melatonin 5 MG AT BEDTIME 08/30 2300 AC 09/02 PO 2221 Nicotine 14 MG Q24 08/30 1000 AC 08/30 TOP 0847 Ondansetron HCl 4 MG Q6P PRN 08/29 2345 AC 09/01 IV 0223 Oxycodone HCl 10 MG Q4-6 PRN PRN 09/02 1015 AC 09/03 PO 0630 Oxycodone HCl 5 MG Q6P PRN 08/29 2345 AC 09/01 PO 2127 Pantoprazole Sodium 40 MG DAILY 08/30 1000 AC 09/03 IV 0743 Pregabalin 200 MG BID 08/30 1000 AC 09/03 PO 0754 Senna/Docusate Sodium 1 TAB AT BEDTIME 08/30 2200 AC 09/02 PO 2222 Topiramate 25 MG DAILY 08/30 1000 AC 09/03 PO 0743 Vitamin E 800 IU DAILY 08/31 1000 AC 09/03 PO 0743 Zolpidem Tartrate 10 MG AT BEDTIME 08/30 2200 AC PO Vital Signs Date Time Temp Pulse Resp B/P B/P Pulse O2 O2 Flow FiO2 Mean Ox Delivery Rate 09/03 0655 98.3 64 20 122/86 95 Room Air 09/02 2138 98.1 72 20 164/90 98 Room Air 09/02 1345 98.0 75 20 150/70 97 Room Air Intake & Output 09/03 1600 09/03 0800 09/03 0000 Intake Total 700 450 Output Total Balance 700 450 Intake, IV 600 Intake, Oral 100 450 Findings Pertinent Lab/Zafar Results: Laboratory Tests 09/03 0742 Chemistry Sodium (137 - 145 mmol/L) 140 Potassium (3.5 - 5.1 mmol/L) 4.3 Chloride (98 - 107 mmol/L) 104 Carbon Dioxide (22 - 30 mmol/L) 25 Anion Gap (5 - 16) 11 BUN (9 - 20 mg/dL) 14 Creatinine (0.7 - 1.2 mg/dL) 0.9 Estimated GFR (>60 ml/min) > 60 BUN/Creatinine Ratio (7 - 25 %) 15.6 Hematology CBC w Diff NO MAN DIFF REQ WBC (4.8 - 10.8 /CUMM) 6.0 RBC (4.70 - 6.10 /CUMM) 3.84 L Hgb (14.0 - 18.0 G/DL) 10.7 L Hct (42 - 52 %) 31.0 L MCV (80.0 - 94.0 FL) 80.6 MCH (27.0 - 31.0 PG) 27.9 MCHC (33.0 - 37.0 G/DL) 34.7 RDW (11.5 - 14.5 %) 13.9 Plt Count (130 - 400 /CUMM) 200 MPV (7.4 - 10.4 FL) 7.9 Gran % (42.2 - 75.2 %) 62.0 Lymphocytes % (20.5 - 51.1 %) 27.2 Monocytes % (1.7 - 9.3 %) 6.8 Eosinophils % (0 - 5 %) 3.7 Basophils % (0.0 - 2.0 %) 0.3 Absolute Granulocytes (1.4 - 6.5 /CUMM) 3.7 Absolute Lymphocytes (1.2 - 3.4 /CUMM) 1.6 Absolute Monocytes (0.10 - 0.60 /CUMM) 0.4 Absolute Eosinophils (0.0 - 0.7 /CUMM) 0.2 Absolute Basophils (0.0 - 0.2 /CUMM) 0
[2017-09-03] MEDS ORDERED: NOVOLOG100 UNIT/2 SC ×2 (11:56→13:22)
[2017-09-03] MEDS ORDERED: LEVEMIR100 UNIT/1 SC ×2 (11:56→13:22)
[2017-09-03 13:48] VITALS: BP 132/90
== END 2017-09-03 18:04 | DRG 439 ==
LOC: ERH 15:39 → 2NA 20:20 → ERHI 20:20 → ENRESERV 21:03 → ENTRNSPT 22:00 → 2NA 22:21 → CMPTRNSPT 22:34 → 2NA 08-30 08:49 → ENPENDDIS 09-03 11:16 → 2NA 09-03 18:04
PROVIDERS: Emergency Medicine; Radiology Vascular & Interventional Radiology; Student in an Organized Health Care Education/Training Program
DX: K85.80 Other acute pancreatitis without necrosis or infection (principal); E87.2 Acidosis; E11.65 Type 2 diabetes mellitus with hyperglycemia; E78.1 Pure hyperglyceridemia; F17.200 Nicotine dependence, unspecified, uncomplicated; Z79.84 Long term (current) use of oral hypoglycemic drugs; E78.5 Hyperlipidemia, unspecified; I10 Essential (primary) hypertension; G43.909 Migraine, unspecified, not intractable, without status migrainosus; Z79.891 Long term (current) use of opiate analgesic; Z80.0 Family history of malignant neoplasm of digestive organs; K21.9 Gastro-esophageal reflux disease without esophagitis; R07.89 Other chest pain; M54.2 Cervicalgia; Z88.0 Allergy status to penicillin; Z90.49 Acquired absence of other specified parts of digestive tract; G47.33 Obstructive sleep apnea (adult) (pediatric); E66.9 Obesity, unspecified; Z68.28 Body mass index [BMI] 28.0-28.9, adult; E83.42 Hypomagnesemia; D72.829 Elevated white blood cell count, unspecified; E86.0 Dehydration
CPT/HCPCS: 2NASP; 36415; 36592; 70220; 71045; 74176; 82436; 93005; 93010; 96374; 99291; G0480; J1644; J1815; J2405; J3101; J3490; J7120